=== PATIENT | male | born 1970 | race Caucasian/White ===

== ENCOUNTER 2016-11-04 19:03 | Inpatient (IN) | payer MEDICAID, OTHER ==
[~2016-11-04] VITALS: Ht 188 cm; Wt 117.9 kg
[2016-11-04 19:03] VITALS: BP_SYST 136
[~2016-11-04 19:03] MED LIST: ASPI81TA2 PO; CARV6.2554 PO; LEVO500T20 PO; LISI-600 PO; SIMV80TA2 PO; SPIR25TA4 PO
[2016-11-04 19:37] LABS: BASOPHILS # (AUTO) 0.1 K/uL (0.0-0.2); BASOPHILS % (AUTO) 1.1 % (0.0-2.0); EOSINOPHILS # (AUTO) 0.3 K/uL (0.0-0.4); EOSINOPHILS % (AUTO) 3.2 % (0.0-4.0); HEMATOCRIT 40.2 % (36-54); HEMOGLOBIN 12.8 g/dL (14.0-18.0); LYMPHOCYTES # (AUTO) 1.3 K/uL (1.0-5.5); MEAN CORPUSCULAR HEMOGLOBIN 26 pg (27-31); MEAN CORPUSCULAR HGB CONC 32 % (32-36); MEAN CORPUSCULAR VOLUME 83 fL (79.0-98.0); MONOCYTES # (AUTO) 0.7 K/uL (0.0-1.0); NEUTROPHILS # (AUTO) 6.9 K/uL (1.8-7.7); NEUTROPHILS % (AUTO) 73.7 % (40.0-70.0); PLATELET COUNT (AUTO) 193 K/uL (130-430); RED BLOOD CELL COUNT(AUTO) 4.86 MIL/uL (4.2-6.2); RED CELL DISTRIBUTION WIDTH 16.6 % (9.0-15.0); WHITE BLOOD COUNT (AUTO) 9.3 K/uL (4.8-10.8)
[2016-11-04 19:41] LABS: CREATININE 1.45 mg/dL (0.55-1.30)
[2016-11-04 19:43] LABS: PROTHROMBIN TIME 11.2 SECS (9.5-12.5)
[2016-11-04] MEDS ORDERED: ASPIRIN 81 MG TAB.CHEW PO ONE (19:45)
[2016-11-04] MEDS ORDERED: ENOXAPARIN SODIUM 100 MG/ML SYRINGE SUBCUT ONE (19:45)
[2016-11-04 19:46] LABS: ALBUMIN 3.8 g/dL (3.4-4.8); TOTAL BILIRUBIN 0.6 mg/dL (0.0-1.0); TOTAL PROTEIN, SERUM 7.8 g/dL (6.4-8.3)
[2016-11-04 21:08] LABS: BILIRUBIN,URINE NEGATIVE (NEGATIVE); CLARITY/URINE CLEAR (CLEAR); COLOR,URINE YELLOW (YELLOW); GLUCOSE,URINE NEGATIVE (NEGATIVE); KETONES,URINE NEGATIVE (NEGATIVE); LEUKOCYTE ESTERASE ,URINE NEGATIVE (NEGATIVE); NITRITE, URINE NEGATIVE (NEGATIVE); PROTEIN URINE 1+ (NEGATIVE)
[2016-11-04 21:14] LABS: BLOOD, URINE TRACE (NEGATIVE)
[2016-11-04 21:17] LABS: BARBITURATE, URINE NEGATIVE (NEG <=200); BENZODIAZEPINE, URINE NEGATIVE (NEG <=150); CANNABINOID, URINE POSITIVE (NEG <=50); COCAINE, URINE NEGATIVE (NEG <=150); METHAMPHETAMINES SCREEN,URINE NEGATIVE (NEG <=500); OPIATE, URINE POSITIVE (NEG <=100); PHENCYCLIDINE SCREEN,URINE NEGATIVE (NEG <=25); UR TRICYCLIC ANTIDEPRESSANTS NEGATIVE (NEG <=300); URINE AMPHETAMINE NEGATIVE (NEG <=500); URINE METHADONE NEGATIVE (NEG <=200); URINE OXYCODONE SCREEN NEGATIVE (NEG <=100); URINE PROPOXYPHENE SCREEN NEGATIVE (NEG <=300)
[2016-11-04 21:35] LABS: BACTERIA,URINE RARE /HPF (None Seen); WBC,URINE 0-3 /HPF (0-3)
[2016-11-04] MEDS ORDERED: DIPHENHYDRAMINE INJ 50 MG/ML VIAL IVP ONE (22:00)
[2016-11-04] MEDS ORDERED: MORPHINE 4 MG/ML INJ. SYRINGE IVP ONE (22:00)
[2016-11-04] MEDS ORDERED: FUROSEMIDE 40 MG/4 ML VIAL IVP ONE (22:00)
[2016-11-04] MEDS ORDERED: WARF1TAB2 PO (22:19)
[2016-11-04] MEDS ORDERED: HYDROcodone/ACETAMIN 10-325 MG TAB PO PRN (22:30)
[2016-11-04] MEDS ORDERED: DIPHENHYDRAMINE HCL 50 MG CAPSULE PO PRN (22:30)
[2016-11-04] MEDS ORDERED: MORPHINE 4 MG/ML INJ. SYRINGE IVP PRN (22:30)
[2016-11-04] MEDS ORDERED: ACETAMINOPHEN 325 MG TABLET PO PRN (22:30)
[2016-11-04] MEDS ORDERED: ONDANSETRON HCL 4 MG/2 ML VIAL IVP PRN (22:30)
[2016-11-04 22:50] VITALS: BP_SYST 144
[2016-11-05 00:10] VITALS: BP_SYST 144
[2016-11-05 04:07] VITALS: BP_SYST 116
[2016-11-05 07:37] VITALS: BP_SYST 124
== END 2016-11-05 08:10 | disposition left against medical advice (07) | DRG 203 ==
LOC: SED 19:03 → STU 22:30
PROVIDERS: ADMIT Internal Medicine; ATTEND Internal Medicine
DX: R07.89 Other chest pain (principal); I11.0 Hypertensive heart disease with heart failure; I42.9 Cardiomyopathy, unspecified; I50.9 Heart failure, unspecified; I48.91 Unspecified atrial fibrillation; E11.9 Type 2 diabetes mellitus without complications; F19.10 Other psychoactive substance abuse, uncomplicated; Z53.21 Procedure and treatment not carried out due to patient leaving prior to being seen by health care provider; Z88.8 Allergy status to other drugs, medicaments and biological substances; Z95.810 Presence of automatic (implantable) cardiac defibrillator
CPT/HCPCS: 36415; 71010; 80053; 80307; 81000-TC; 83605; 83880; 84484; 85025; 85610-TC; 85730-TC; 87040-TC; 87081; 93005; 96374; 96375; 99285; J1200; J1940; J2270; Q0163

== ENCOUNTER 2017-01-15 08:22 | Inpatient (IN) | payer MEDICAID, OTHER ==
[~2017-01-15] VITALS: Ht 188 cm; Wt 126.6 kg
[~2017-01-15 08:22] MED LIST changes: +WARF1TAB2 PO
--- NOTE | 2017-01-15 08:22 | NUR ---
Placed in room 1 . Placed on front desk monitor, blood pressure machine and pulse oximeter. To gown for exam. Side rails up. Report given to Veronica MCKEON.
--- NOTE | 2017-01-15 08:25 | NUR ---
ER Dr. Ingarm at bedside examining patient.
[2017-01-15] MEDS ORDERED: NITROGLYCERIN LINGUAL 400 mCg/SPRAY SL STA (08:28)
[2017-01-15 08:29] VITALS: BP_SYST 141
[2017-01-15 08:48] LABS: BASOPHILS # (AUTO) 0.4 K/uL (0.0-0.2); BASOPHILS % (AUTO) 3.7 % (0.0-2.0); EOSINOPHILS # (AUTO) 0.2 K/uL (0.0-0.4); EOSINOPHILS % (AUTO) 1.7 % (0.0-4.0); HEMATOCRIT 40.6 % (36-54); HEMOGLOBIN 12.8 g/dL (14.0-18.0); LYMPHOCYTES # (AUTO) 1.1 K/uL (1.0-5.5); MEAN CORPUSCULAR HEMOGLOBIN 26 pg (27-31); MEAN CORPUSCULAR HGB CONC 32 % (32-36); MEAN CORPUSCULAR VOLUME 82 fL (79.0-98.0); MONOCYTES # (AUTO) 0.5 K/uL (0.0-1.0); MONOCYTES % (AUTO) 4.9 % (1.7-9.3); NEUTROPHILS # (AUTO) 8.9 K/uL (1.8-7.7); NEUTROPHILS % (AUTO) 79.7 % (40.0-70.0); PLATELET COUNT (AUTO) 313 K/uL (130-430); RED BLOOD CELL COUNT(AUTO) 4.98 MIL/uL (4.2-6.2); RED CELL DISTRIBUTION WIDTH 16.8 % (9.0-15.0); WHITE BLOOD COUNT (AUTO) 11.1 K/uL (4.8-10.8)
--- NOTE | 2017-01-15 08:50 | NUR ---
# 20 gauge angiocath placed to LEFT A/C. Use of aseptic technique. Opsite placed over site. Blood return noted. Flushed with 10 cc of normal saline. No evidence of infiltration noted. Patient tolerated well.
[2017-01-15 08:53] LABS: CALCIUM 8.8 mg/dL (8.4-11.0); CREATININE 1.84 mg/dL (0.55-1.30); POTASSIUM 3.5 mmol/L (3.5-5.1)
[2017-01-15 08:58] LABS: ALBUMIN 3.1 g/dL (3.4-4.8); TOTAL BILIRUBIN 1.9 mg/dL (0.0-1.0); TOTAL PROTEIN, SERUM 6.9 g/dL (6.4-8.3)
[2017-01-15] MEDS ORDERED: MORPHINE 2 MG/ML INJ. SYRINGE IVP ONE (09:00)
[2017-01-15] MEDS ORDERED: PROMETHAZINE HCL 25 MG/ML AMP IVP ONE (09:00)
[2017-01-15] MEDS ORDERED: ASPIRIN 81 MG TAB.CHEW PO ONE (09:00)
--- NOTE | 2017-01-15 09:10 | NUR ---
MORPHINE 2 MG IVP. ASPIRIN PO GIVEN ORDERED.
[2017-01-15] MEDS ORDERED: CARV12.548 PO (09:18)
[2017-01-15] MEDS ORDERED: FURO-149 PO (09:18)
[2017-01-15] MEDS ORDERED: DOCU-144 PO (09:18)
[2017-01-15] MEDS ORDERED: SPIR25TA PO (09:18)
--- NOTE | 2017-01-15 09:29 | NUR ---
Telemetry strip printed, interpreted as SINUS TACHYCARDIA WITH BUNDLE BRANCH BLOCK at 103 bpm, and placed on the chart.
[2017-01-15] MEDS ORDERED: cloNIDine HCL 0.1 MG TABLET PO PRN (09:45)
[2017-01-15] MEDS ORDERED: FUROSEMIDE 40 MG TABLET PO ONE (09:45)
--- NOTE | 2017-01-15 10:00 | NUR ---
TRANSFERRED PT TO TELEMETRY DEPT, VIA [facility], PORTABLE CARDIAC MONITORING WITH PULSE OXIMETRY, O2 IN USE AT 2 L PER MIN VIA NASAL CANNULA, REPORT GIVEN TO MIKE SCHILLING. [facility].
--- NOTE | 2017-01-15 10:08 | NUR ---
ADMISSION NOTE Received patient from ER via andrew, received report from KATTY MCKEON. Patient admitted with diagnosis of CHEST PAIN. Patient oriented to hospital routine, call light, toileting and safety-patient verbalized understanding.
[2017-01-15 10:09] VITALS: BP_SYST 139
[2017-01-15 12:30] VITALS: BP_SYST 130
--- NOTE | 2017-01-15 12:30 | NUR ---
RN ROUNDS PATIENT RESTING IN BED WITH EYES CLOSED, NO SIGNS OF DISTRESS NOTED, BREATHING IS EVEN AND UNLABORED, CALL CRISTINA LEFT NEXT TO PATIENT'S HAND, FALL PRECAUTIONS IN PLACE, WILL CONTINUE TO MONITOR.
[2017-01-15] MEDS ORDERED: LORazepam 2 MG/ML VIAL IVP PRN (13:30)
[2017-01-15] MEDS ORDERED: ONDANSETRON HCL 4 MG/2 ML VIAL IVP PRN (13:30)
[2017-01-15] MEDS ORDERED: DEXTROSE 50% JECT 50 ML DISP.SYRIN IVP PRN (13:30)
[2017-01-15] MEDS: MORPHINE 4 MG/ML INJ. SYRINGE IVP PRN ×2 (14:00→20:06)
--- NOTE | 2017-01-15 14:03 | NUR ---
RN ROUNDS PATIENT WAS GIVEN PRN PAIN MEDICATION, WILL REASSESS EFFECTIVENESS, INSTRUCTED PATIENT TO USE CALL CRISTINA FOR ASSISTANCE ESPECIALLY TO AMBULATE, PATIENT VERBALIZED UNDERSTANDING, NO OTHER NEEDS AT THIS TIME, FALL PRECAUTIONS IN PLACE,
--- NOTE | 2017-01-15 15:00 | NUR ---
RN ROUNDS PATIENT RESTING IN BED WITH EYES CLOSED, NO SIGNS OF DISTRESS NOTED, BREATHING IS EVEN AND UNLABORED, FALL PRECAUTIONS IN PLACE, WILL CONTINUE TO MONITOR.
--- NOTE | 2017-01-15 15:22 | NUR ---
CARDIO CONSULT: DR DEUTSCH Consult was called, RE CHITRA Mireles
--- NOTE | 2017-01-15 16:06 | NUR ---
RN ROUNDS PATIENT RESTING IN BED WITH EYES CLOSED, CALL CRISTINA WITHIN REACH OF PATIENT, FALL PRECAUTIONS IN PLACE, WILL CONTINUE TO MONITOR.
[2017-01-15] MEDS: INSULIN REGULAR, HUMAN 100 UNITS/ML, 10 ML VIAL (novoLIN R) SUBCUT PRN ×2 (16:48→20:54)
--- NOTE | 2017-01-15 16:50 | NUR ---
RN ROUNDS ACCUCHECK DONE UR=[id number], PATIENT WAS GIVEN 2UNITS OF INSULIN FOR COVERAGE, NO OTHER NEEDS AT THIS TIME, WILL CONTINUE TO MONITOR, FALL PRECAUTIONS IN PLACE.
[2017-01-15 17:28] VITALS: BP_SYST 129
--- NOTE | 2017-01-15 18:28 | NUR ---
CLOSING NOTE PATIENT CURRENTLY SITTING UP ON SIDE OF BED EATING DINNER, PATIENT HAS NO COMPLAINTS OF PAIN OR DISCOMFORT AT THIS TIME, ALL NEEDS MET, WILL ENDORSE PATIENT TO ROLL COATING MACHINE OPERATOR NURSE, CALL CRISTINA LEFT WITHIN REACH OF PATIENT, SIDE RAILS UP, BED IN LOWEST POSITION, FALL PRECAUTIONS IN PLACE.
[2017-01-15 19:57] VITALS: BP_SYST 132
--- NOTE | 2017-01-15 19:57 | NUR ---
PM ASSESSMENT PT. A/OX4, VITAL SIGNS STABLE, NO DISTRESS NOTED, PT. C/O SEVERE UPPER ABDOMINAL PAIN RATED 10/10, UPDATED WITH PLAN OF CARE, ENCOURAGED PT. TO USE CALL LIGHT FOR ASSISTANCE, CALL LIGHT WITHIN REACH.
--- NOTE | 2017-01-15 21:30 | NUR ---
ACCUCHECK BLOOD SWOML=654, 4 UNITS REGULAR INSULIN GIVEN.
--- NOTE | 2017-01-15 23:30 | NUR ---
RN ROUNDS PT. RESTING QUIETLY, VITAL SIGNS STABLE, NO DISTRESS NOTED, CALL LIGHT WITHIN REACH.
[2017-01-16] VITALS: BP_SYST 122
[2017-01-16] MEDS: MORPHINE 4 MG/ML INJ. SYRINGE IVP PRN ×5 (01:08→21:18)
--- NOTE | 2017-01-16 01:30 | NUR ---
RN ROUNDS PT. RESTING QUIETLY, VITAL SIGNS STABLE, NO DISTRESS NOTED, NO S/S OF PAIN OR DISCOMFORT. REPOSITIONED WITH PILLOW SUPPORT. BED IN LOWEST POSITION.
--- NOTE | 2017-01-16 03:30 | NUR ---
RN ROUNDS PT. SLEEPING, VITAL SIGNS STABLE, NO DISTRESS NOTED, NO S/S OF PAIN OR DISCOMFORT. REPOSITIONED WITH PILLOW SUPPORT. BED IN LOWEST POSITION.
[2017-01-16 04:00] VITALS: BP_SYST 132
--- NOTE | 2017-01-16 05:31 | NUR ---
PAIN PT. C/O SEVERE ABDOMINAL PAIN RATED "8/10", MORPHINE 4 MG IVP GIVEN ORDERED. VITAL SIGNS STABLE, NO DISTRESS NOTED.
--- NOTE | 2017-01-16 06:31 | NUR ---
CLOSING NOTES PT. RESTING QUIETLY, VITAL SIGN STABLE, NO DISTRESS NOTED, DENIES PAIN, IV ACCESS FLUSHED WELL, CALL LIGHT WITHIN REACH, BED IN LOWEST POSITION.
[2017-01-16 07:09] LABS: BASOPHILS # (AUTO) 0.1 K/uL (0.0-0.2); EOSINOPHILS # (AUTO) 0.4 K/uL (0.0-0.4); HEMATOCRIT 37.3 % (36-54); LYMPHOCYTES # (AUTO) 1.5 K/uL (1.0-5.5); LYMPHOCYTES % (AUTO) 15.3 % (20.5-51.5); MEAN CORPUSCULAR HEMOGLOBIN 26 pg (27-31); MEAN CORPUSCULAR HGB CONC 32 % (32-36); MEAN CORPUSCULAR VOLUME 81 fL (79.0-98.0); MONOCYTES # (AUTO) 0.7 K/uL (0.0-1.0); MONOCYTES % (AUTO) 7.3 % (1.7-9.3); NEUTROPHILS # (AUTO) 6.9 K/uL (1.8-7.7); NEUTROPHILS % (AUTO) 72.4 % (40.0-70.0); PLATELET COUNT (AUTO) 263 K/uL (130-430); RED CELL DISTRIBUTION WIDTH 16.7 % (9.0-15.0); WHITE BLOOD COUNT (AUTO) 9.6 K/uL (4.8-10.8)
--- NOTE | 2017-01-16 08:00 | NUR ---
opening notes, received pt in bed, aao x4, denies pain, no sob, no distress. iv lock , patent and intact. call light in easy reach, bed in low position. will cont to monitor.
[2017-01-16 08:07] VITALS: BP_SYST 123
[2017-01-16 08:07] LABS: POTASSIUM 3.5 mmol/L (3.5-5.1)
[2017-01-16 08:08] LABS: ALBUMIN 2.8 g/dL (3.4-4.8); CALCIUM 8.2 mg/dL (8.4-11.0); CREATININE 1.52 mg/dL (0.55-1.30); TOTAL BILIRUBIN 1.1 mg/dL (0.0-1.0); TOTAL PROTEIN, SERUM 6.5 g/dL (6.4-8.3)
[2017-01-16 08:09] LABS: FREE T4 (FREE THYROXINE) 1.1 ng/dL (0.6-1.6)
[2017-01-16] MEDS: CARVEDILOL 12.5 MG TABLET (COREG) PO SCH ×2 (09:19→21:17)
[2017-01-16] MEDS: LISINOPRIL 10 MG TABLET (PRINIVIL) PO SCH (09:20)
[2017-01-16] MEDS: FUROSEMIDE 40 MG/4 ML VIAL IVP SCH ×2 (09:21→21:16)
[2017-01-16] MEDS: SPIRONOLACTONE 25 MG TABLET (ALDACTONE) PO SCH ×2 (09:22→21:16)
[2017-01-16] MEDS: DIPHENHYDRAMINE INJ 50 MG/ML VIAL IVP PRN ×2 (09:59→23:24)
--- NOTE | 2017-01-16 10:00 | NUR ---
rounding notes pt in bed, resting comfortably no distress. no c/o pain. call light in easy reach, bed in low position. will cont to monitor.
--- NOTE | 2017-01-16 12:00 | NUR ---
rounding notes pt in bed, resting in bed, waiting for lunch. no c/o pain. call light in easy reach, bed in low position. will cont to monitor.
--- NOTE | 2017-01-16 16:00 | NUR ---
rounding notes pt in bed, aao, no sob, no distress. requested for cracker and water, all request provided. no c/o pain. call light in easy reach, bed in low position. will cont to monitor.
[2017-01-16] MEDS: INSULIN REGULAR, HUMAN 100 UNITS/ML, 10 ML VIAL (novoLIN R) SUBCUT PRN (17:56)
--- NOTE | 2017-01-16 18:19 | NUR ---
CLOSING NOTES, PT IN BED, DENIES PAIN, NO SOB, NO DISTRESS. PT REMAINED AA0X4, PT ON DIURETICS, URINATING WELL. KEPT SAFE. ALL REQUEST AND NEEDS MET AND PROVIDED. BLOOD SUGAR THIS PM WAS 181 AND 2 UNITS COVERAGE WAS GIVEN ORDERED. CALL LIGHT IN EASY REACH AND BED IN LOW POSITION AT ALL TIMES. WILL ENDORSE TO NIGHT RN.
--- NOTE | 2017-01-16 18:57 | NUR ---
PT REFUSED SCD FOR DVT PROPHYLAXIS. OFFERED PT SCD BUT PT REFUSED. EXPLAINED TO PT THE USE AND IMPORTANCE OF SCD WHICH IS TO PREVENT BLOOD CLOT WHILE PT IS ON BEDREST. PT STATED THAT HE KNOWS WHAT IT IS.
[2017-01-16 20:00] VITALS: BP_SYST 127
--- NOTE | 2017-01-16 20:00 | NUR ---
Initial PM Assessment Pt was received lying in bed fully awake, alert and oriented X4. Speech is clear and pt is able to make his needs known. No c/o pain or discomfort at this time. Fall and safety precautions are in place. Pt declined SCD's. Saline lock in LAC is patent and without any signs of infiltration. Skin is warm and dry to touch. No signs or symptoms of hypoglycemia or hyperglycemia noted. Will continue to monitor pt.
--- NOTE | 2017-01-16 20:30 | NUR ---
Transfer to Med/Surg Pt was transferred from Telemetry to Med/Surg per MD's order. director global was removed and given to Client Director.
--- NOTE | 2017-01-16 21:14 | NUR ---
Blood Sugar Accucheck 104 and no Insulin coverage needed. Skin remains warm and dry to touch. Pt was given HS snacks and he ate !00%.
--- NOTE | 2017-01-16 21:18 | NUR ---
Pain Medication Morphine 4mg was given IV per pt's request for c/o mid chest pain with relief. court monitor is showing SR. Addendum: 01/17/17 at 0338 by Natalia Vela RN Correction Pt is off court monitor and is a Med/Surg pt.
--- NOTE | 2017-01-16 23:24 | NUR ---
Itching Medication Benadryl 25mg was given IV per pt's request for c/o generalized itching with relief. Pt was multiple dry scabs on his skin.
[2017-01-16 23:32] VITALS: BP_SYST 123
--- NOTE | 2017-01-17 02:00 | NUR ---
Rounds Pt is sleeping without any distress noted. Fall and safety precautions are in place.
[2017-01-17] MEDS: MORPHINE 4 MG/ML INJ. SYRINGE IVP PRN ×4 (03:06→20:40)
--- NOTE | 2017-01-17 03:06 | NUR ---
Pain Medication Morphine 4mg was given IV per pt's request for c/o mid chest pain with relief.
--- NOTE | 2017-01-17 04:00 | NUR ---
Rounds Pt is sleeping without any distress noted. Fall and safety precautions are in place.
[2017-01-17 04:52] VITALS: BP_SYST 94
--- NOTE | 2017-01-17 06:43 | NUR ---
Closing Note Pt is awake and resting comfortably in bed. All pt's needs were attended to. No fall or injury noted this shift. Accucheck 99 this AM and no Insulin coverage needed. Skin remains warm and dry to touch. Will endorse to day shift nurse.
[2017-01-17] MEDS: DIPHENHYDRAMINE INJ 50 MG/ML VIAL IVP PRN ×3 (06:52→22:12)
--- NOTE | 2017-01-17 07:30 | NUR ---
Initial notes: patient on bed sleeping. Stable. I.V. access on saline lock. Call light within reach.
[2017-01-17 07:35] LABS: ALBUMIN 2.9 g/dL (3.4-4.8); CALCIUM 8.8 mg/dL (8.4-11.0); CREATININE 1.4 mg/dL (0.55-1.30); TOTAL BILIRUBIN 0.8 mg/dL (0.0-1.0); TOTAL PROTEIN, SERUM 6.7 g/dL (6.4-8.3)
[2017-01-17] MEDS: FUROSEMIDE 40 MG/4 ML VIAL IVP SCH ×3 (08:12→20:50)
[2017-01-17] MEDS: LISINOPRIL 10 MG TABLET (PRINIVIL) PO SCH (08:13)
[2017-01-17] MEDS: CARVEDILOL 12.5 MG TABLET (COREG) PO SCH ×2 (08:13→20:43)
[2017-01-17] MEDS: SPIRONOLACTONE 25 MG TABLET (ALDACTONE) PO SCH ×2 (08:14→20:42)
--- NOTE | 2017-01-17 08:17 | NUR ---
rounds: patient awake and had just breakfast. Requesting for more food. Discussed plan of care. Complained of pain 9/10 chest going down to both arm.
--- NOTE | 2017-01-17 08:26 | NUR ---
Robert rounds: Dr. Napoles seen the patient. He said pt may go later today. He gives his clearance.
[2017-01-17 09:08] VITALS: BP_SYST 121
--- NOTE | 2017-01-17 10:15 | NUR ---
rounds: patient sleeping. no distress noted.
--- NOTE | 2017-01-17 11:30 | NUR ---
rounds: patient resting. no distress noted.
[2017-01-17 11:51] VITALS: BP_SYST 119
--- NOTE | 2017-01-17 13:46 | NUR ---
rounds: patient states "He'll have shower later". Went back to sleep.
--- NOTE | 2017-01-17 16:01 | NUR ---
pain: patient verbalized of chest pain 9/. Patient appears relax, no facial grimace. requesting pain meds. Due Morphine pain meds I,.V.P. given.
[2017-01-17] MEDS: INSULIN REGULAR, HUMAN 100 UNITS/ML, 10 ML VIAL (novoLIN R) SUBCUT PRN ×2 (17:00→20:49)
--- NOTE | 2017-01-17 18:28 | NUR ---
Closing notes: Patient on bed resting. Stable. Needs attended. Call light within reach. Report will be given to incoming patient services manager nurse.
--- NOTE | 2017-01-17 19:00 | NUR ---
PM Notes Received patient on bed awake, alert and verbally responsive watching TV noted. No sign of respiratory distress and no complain of pain noted. IV site saline lock on left antecubital gauge 20 is intact with no s/sx. of infiltration noted. No s/sx. of hypo/hyperglycemia noted. Continue to monitor. All needs attended by staff. Call light within reach.
--- NOTE | 2017-01-17 22:20 | NUR ---
PM Notes Patient on bed sleeping noted. No sign of respiratory distress noted. Continue to monitor. Call light within reach.
[2017-01-18] VITALS (7 sets, daily range): BP systolic 92–123
--- NOTE | 2017-01-18 00:26 | NUR ---
Notes Patient on bed sleeping noted. No sign of respiratory distress and no complain of pain noted. Continue to monitor. Call light within reach.
[2017-01-18] MEDS: MORPHINE 4 MG/ML INJ. SYRINGE IVP PRN ×4 (02:29→20:28)
--- NOTE | 2017-01-18 02:32 | NUR ---
Notes Patient woke up and asked for pain medication. Given due pain medication as ordered. Continue to monitor. Call light within reach.
--- NOTE | 2017-01-18 04:08 | NUR ---
Notes Patient on bed sleeping noted with no sign of respiratory distress and no complain of pain noted. Continue to monitor. Call light within reach.
[2017-01-18] MEDS: DIPHENHYDRAMINE INJ 50 MG/ML VIAL IVP PRN ×3 (04:23→17:22)
--- NOTE | 2017-01-18 06:33 | NUR ---
Closing Notes Patient on bed, awake, alert and verbally responsive. No sign of respiratory distress and no complain of pain noted and checked BS WNL. All needs attended and met by staff. Call light within reach.
--- NOTE | 2017-01-18 06:41 | NUR ---
Notes Went to the room and encouraged patient to take a shower. Patient stated "later I will take a shower". Brought in the room new gown, wash cloth and deodorant. Will endorsed morning shift. Call light within reach.
--- NOTE | 2017-01-18 07:20 | NUR ---
Initial notes: patient on bed sleeping. Stable. Oxygen @2l. via NC. Safety measures in placed. Call light within reach.
[2017-01-18 07:41] LABS: BASOPHILS # (AUTO) 0.1 K/uL (0.0-0.2); EOSINOPHILS # (AUTO) 0.4 K/uL (0.0-0.4); LYMPHOCYTES # (AUTO) 1.5 K/uL (1.0-5.5); MONOCYTES # (AUTO) 0.7 K/uL (0.0-1.0); WHITE BLOOD COUNT (AUTO) 8.7 K/uL (4.8-10.8)
[2017-01-18 07:58] LABS: CALCIUM 9.4 mg/dL (8.4-11.0); CREATININE 1.62 mg/dL (0.55-1.30); POTASSIUM 4.4 mmol/L (3.5-5.1)
[2017-01-18 08:02] LABS: BASOPHILS % (AUTO) 1.3 % (0.0-2.0); EOSINOPHILS % (AUTO) 4.1 % (0.0-4.0); HEMATOCRIT 41.8 % (36-54); HEMOGLOBIN 12.9 g/dL (14.0-18.0); MEAN CORPUSCULAR HEMOGLOBIN 25 pg (27-31); MEAN CORPUSCULAR HGB CONC 31 % (32-36); MEAN CORPUSCULAR VOLUME 82 fL (79.0-98.0); MONOCYTES % (AUTO) 7.9 % (1.7-9.3); NEUTROPHILS % (AUTO) 69.7 % (40.0-70.0); PLATELET COUNT (AUTO) 317 K/uL (130-430); RED BLOOD CELL COUNT(AUTO) 5.12 MIL/uL (4.2-6.2); RED CELL DISTRIBUTION WIDTH 17.3 % (9.0-15.0)
[2017-01-18] MEDS: FUROSEMIDE 40 MG/4 ML VIAL IVP SCH (09:10)
[2017-01-18] MEDS: CARVEDILOL 12.5 MG TABLET (COREG) PO SCH ×2 (09:11→20:28)
[2017-01-18] MEDS: SPIRONOLACTONE 25 MG TABLET (ALDACTONE) PO SCH ×2 (09:11→20:27)
[2017-01-18] MEDS: LISINOPRIL 10 MG TABLET (PRINIVIL) PO SCH (09:12)
--- NOTE | 2017-01-18 09:35 | NUR ---
rounds: patient had a shower and provided a gown. cleaned room and changed beddings.
--- NOTE | 2017-01-18 10:17 | NUR ---
IV RE-INSERTION: Complaining of pain to IV site. Restarted on R hand g22. Successful after attempts. Will observe for any signs of infiltration.
--- NOTE | 2017-01-18 11:06 | NUR ---
Social Service Note: Pt referred to hospice social worker by physician due to pt being homeless. PIPELINE SYSTEMS OPERATOR met with pt at bedside; pt states that he has been staying in his truck for about a year. Pt states that he does not go to the [facility] because "its always full". Pt states that he is working on his social security/disability for some income. Pt states that he mainly [employer]. PIPELINE SYSTEMS OPERATOR provided pt with homeless assistance resources, local [facility], and local food brar. PIPELINE SYSTEMS OPERATOR has left homeless wavier in pt's chart; pt will return to his truck upon discharge. PIPELINE SYSTEMS OPERATOR will remain available for support and will follow up as needed.
--- NOTE | 2017-01-18 11:48 | NUR ---
rounds: patient sleeping. no distress noted.
--- NOTE | 2017-01-18 13:30 | NUR ---
rounds: patient on bed sleeping. no distress noted.
--- NOTE | 2017-01-18 15:42 | NUR ---
Pain meds: patient complained of chest pain. 02/11. Requesting Morphine.IVP. Due meds given. Patient appears calm. no grasping of chest. no facial grimace.
--- NOTE | 2017-01-18 15:48 | NUR ---
food: Patient keeps on asking cracker or any food. tried to educate sugar intake but will not listen and mad.
--- NOTE | 2017-01-18 17:27 | NUR ---
rounds: patient resting on bed. no distress noted. Benadryl given for itchiness.
--- NOTE | 2017-01-18 18:29 | NUR ---
Closing notes: Patient on bed sleeping. Stable. Needs attended. Call light within reach. Report will be given to automotive glass specialist.
--- NOTE | 2017-01-18 19:36 | NUR ---
opening note Report was endorsed by day nurse. Patient appears to be resting with eyes closed no sings of distress, visible chest rise and fall breathing is equal and non labored.will continue monitor.
[2017-01-18] MEDS: FUROSEMIDE 40 MG TABLET PO SCH (20:28)
--- NOTE | 2017-01-18 21:10 | NUR ---
Accu check Addendum: 01/19/17 at 0121 by Parisa Barnes RN blood sugar checked coverage not needed please see EMAR. Patient educated on safety refusing bed alarm at this time. Call light is with patient educated to use for assistance. Will continue to monitor.
--- NOTE | 2017-01-19 | NUR ---
Medication Patient is complains of itching medicated as ordered please see EMAR. Patients vital signs are stable.urinal emptied, snacks provided as requested. Educated client service consultant light for assistance. Patient is refusing bed alarm at this time. educated on safety. Call light is with patient. Will continue to monitor.
[2017-01-19] MEDS: MORPHINE 4 MG/ML INJ. SYRINGE IVP PRN ×2 (01:28→06:21)
--- NOTE | 2017-01-19 01:31 | NUR ---
Pain medication Patient is complains of pain medicated as ordered please see EMAR. Patient urinal emptied, educated family development extension specialist light for assistance, refusing bed alarm. Patient is awake and laying in bed no signs of distress, breathing is equal and non labored. call light is with patient. Will continue to monitor.
--- NOTE | 2017-01-19 02:57 | NUR ---
Non administered Ativan non administered.
--- NOTE | 2017-01-19 05:00 | NUR ---
Rn rounding Patient appears to be resting with eyes closed visible chest rise and fall. Patient breathing is equal and non labored, with no signs of distress. Patient has call light with him. Patient is refusing bed alarm, and SCD. all other safety precautions in place.
--- NOTE | 2017-01-19 06:25 | NUR ---
Closing note/medication Patient Accu check done no coverage needed. Patient requesting pain medication medicated as order please see EMAR. Patient has daisy light with him, educated on use for assistance. safety precautions in place. refusing bed alarm, and scd at this moment. Patient is stable at this time. Will endorse report to oncoming day nurse at bed side.
[2017-01-19 08:00] VITALS: BP_SYST 130
[2017-01-19] MEDS: CARVEDILOL 12.5 MG TABLET (COREG) PO SCH (09:31)
[2017-01-19] MEDS: SPIRONOLACTONE 25 MG TABLET (ALDACTONE) PO SCH (09:32)
[2017-01-19] MEDS: LISINOPRIL 10 MG TABLET (PRINIVIL) PO SCH (09:32)
[2017-01-19] MEDS: FUROSEMIDE 40 MG TABLET PO SCH (09:33)
[2017-01-19] MEDS: DIPHENHYDRAMINE INJ 50 MG/ML VIAL IVP PRN ×2 (09:33)
--- NOTE | 2017-01-19 10:01 | NUR ---
AM NOTES RECEIVED PT AAOX4 IN NO ACUTE DISTRESS. PT DENIES ANY PAIN AT THIS TIME, ONLY REQUESTING CRACKERS AND BENADRYL. DISCUSSED POC FOR THE DAY WITH PT INCLUDING DISCHARGE FOR TODAY. PT VERBALIZED HE HAS HIS CAR HERE AND WILL DRIVE HIMSELF TO A [facility]. PT ENCOURAGED TO USE CALL LIGHT FOR ASSISTANCE. PT VERBALIZED UNDERSTANDING. BED IN LOWEST POSITION WITH SIDE RAILS UP X2.
--- NOTE | 2017-01-19 11:30 | NUR ---
ROUNDS PT NOTIFIED OF DISCHARGE ORDERS FOR TODAY. PT REFUSED TO HAVE HIS VITAL SIGNS TAKEN. BLOOD SUGAR NOTED TO BE 155, PT REFUSED INSULIN. DENIES ANY PAIN AT THIS TIME
[2017-01-19] MEDS ORDERED: PRO40 PO (11:45)
[2017-01-19] MEDS ORDERED: LISI10TA5 PO (11:46)
[2017-01-19] MEDS: INSULIN REGULAR, HUMAN 100 UNITS/ML, 10 ML VIAL (novoLIN R) SUBCUT PRN (11:56)
--- NOTE | 2017-01-19 12:46 | NUR ---
D/C Patient Patient given medication reconciliation form and D/C instructions. Exit Care provided. Patient verbalized understanding. MD discussed with patient the results and treatment provided. Ambulatory with steady gait for discharge to home. Patient in stable condition, ID band removed. IV catheter removed, intact and dressing applied, no active bleeding. Rx of PROTONIX, COREG, LASIX, ALDACTONE AND LISINOPRIL given. Patient educated on pain management. All belongings sent with patient.
== END 2017-01-19 12:44 | disposition home or self-care (01) | DRG 203 ==
LOC: SED 08:22 → STU 09:32 → SMU 01-16 21:43
PROVIDERS: ADMIT Internal Medicine; ATTEND Internal Medicine
DX: R07.89 Other chest pain (principal); I42.0 Dilated cardiomyopathy; N18.4 Chronic kidney disease, stage 4 (severe); N17.9 Acute kidney failure, unspecified; I50.9 Heart failure, unspecified; I13.0 Hypertensive heart and chronic kidney disease with heart failure and stage 1 through stage 4 chronic kidney disease, or unspecified chronic kidney disease; F03.90 Unspecified dementia, unspecified severity, without behavioral disturbance, psychotic disturbance, mood disturbance, and anxiety; Q60.0 Renal agenesis, unilateral; E11.22 Type 2 diabetes mellitus with diabetic chronic kidney disease; F12.90 Cannabis use, unspecified, uncomplicated; I48.0 Paroxysmal atrial fibrillation; T43.625A Adverse effect of amphetamines, initial encounter; G89.29 Other chronic pain; M54.9 Dorsalgia, unspecified; J44.9 Chronic obstructive pulmonary disease, unspecified; K21.9 Gastro-esophageal reflux disease without esophagitis; E07.9 Disorder of thyroid, unspecified; F19.20 Other psychoactive substance dependence, uncomplicated; F10.10 Alcohol abuse, uncomplicated; Z95.810 Presence of automatic (implantable) cardiac defibrillator; Z59.0 Homelessness; Z79.899 Other long term (current) drug therapy; Z86.73 Personal history of transient ischemic attack (TIA), and cerebral infarction without residual deficits; Z88.8 Allergy status to other drugs, medicaments and biological substances; Y92.89 Other specified places as the place of occurrence of the external cause
CPT/HCPCS: 36415; 71010; 80048; 80053; 80061; 82962; 83036; 83880; 84439; 84484; 85025; 87081; 87210-TC; 93005; 93306; 96374; 96375; 99285; J1200; J1815; J1940; J2060; J2270; J2550

== ENCOUNTER 2017-03-04 10:30 | Inpatient (IN) | payer OTHER ==
[2017-01-17 15:16] VITALS: Ht 188 cm; Wt 122.5 kg
[~2017-03-04] VITALS: Ht 188 cm; Wt 122.5 kg
[2017-03-04 10:30] VITALS: BP 137/88; PULSE 98; RESP 20; TEMP 98.3; O2SAT 100
[~2017-03-04 10:30] MED LIST changes: +CARV12.548 PO; +CARV3.1246 PO; +CYCL-10 PO; +DOCU-144 PO; +EFFEXOR; +FURO-149 PO; +HYDR-1189 PO; +LISI10TA5 PO; +LISI2.5T48 PO; +NORCO5 PO; +PRO40 PO; +SPIR25TA PO; +WARF7.5T46 PO
--- NOTE | 2017-03-04 10:30 | NUR ---
BROUGHT BACK TO BED #1 AND TRIAGED. REPORT GIVEN TO MACKENZIE
[2017-03-04] MEDS ORDERED: NACL 0.9% 1,000 ML IV ONE (10:45)
[2017-03-04] MEDS ORDERED: ASPIRIN 325 MG TABLET PO ONE (10:45)
[2017-03-04] MEDS ORDERED: MORPHINE 4 MG/ML INJ. SYRINGE IVP ONE ×2 (10:45→12:15)
[2017-03-04] MEDS ORDERED: NITROGLYCERIN 0.4 MG TAB.SUBL SL ONE (10:45)
--- NOTE | 2017-03-04 10:45 | NUR ---
ER at bedside examining patient.
[2017-03-04] MEDS ORDERED: DIPHENHYDRAMINE INJ 50 MG/ML VIAL IVP ONE (11:00)
--- NOTE | 2017-03-04 11:07 | NUR ---
Pt complains of chest pain that radiates to both upper extremities and to fingers since last night. Pt states had N/V since last night and had a bowel movement on himself at 3am. No other injuries/complaints per pt or noted.
[2017-03-04 11:22] LABS: BASOPHILS # (AUTO) 0.1 K/uL (0.0-0.2); BASOPHILS % (AUTO) 0.8 % (0.0-2.0); EOSINOPHILS # (AUTO) 0.1 K/uL (0.0-0.4); HEMATOCRIT 38.6 % (36-54); HEMOGLOBIN 12.2 g/dL (14.0-18.0); LYMPHOCYTES # (AUTO) 0.9 K/uL (1.0-5.5); LYMPHOCYTES % (AUTO) 8.6 % (20.5-51.5); MEAN CORPUSCULAR HEMOGLOBIN 25 pg (27-31); MEAN CORPUSCULAR HGB CONC 32 % (32-36); MEAN CORPUSCULAR VOLUME 79 fL (79.0-98.0); MONOCYTES # (AUTO) 0.5 K/uL (0.0-1.0); MONOCYTES % (AUTO) 4.9 % (1.7-9.3); NEUTROPHILS # (AUTO) 8.6 K/uL (1.8-7.7); NEUTROPHILS % (AUTO) 84.7 % (40.0-70.0); PLATELET COUNT (AUTO) 240 K/uL (130-430); RED BLOOD CELL COUNT(AUTO) 4.89 MIL/uL (4.2-6.2); RED CELL DISTRIBUTION WIDTH 17.7 % (9.0-15.0); WHITE BLOOD COUNT (AUTO) 10.2 K/uL (4.8-10.8)
[2017-03-04 11:40] LABS: INR 1.3 (0.80-1.20); PROTHROMBIN TIME 14.7 SECS (9.5-12.5)
[2017-03-04 11:57] LABS: CALCIUM 9.2 mg/dL (8.4-11.0); CREATININE 1.63 mg/dL (0.55-1.30); POTASSIUM 3.8 mmol/L (3.5-5.1)
[2017-03-04 12:07] LABS: ALBUMIN 3.3 g/dL (3.4-4.8); TOTAL BILIRUBIN 1.5 mg/dL (0.0-1.0)
[2017-03-04] MEDS ORDERED: FUROSEMIDE 40 MG/4 ML VIAL IVP ONE (12:30)
[2017-03-04] MEDS ORDERED: ENOXAPARIN SODIUM 120 MG/0.8 ML SYRINGE SUBCUT ONE (12:30)
--- NOTE | 2017-03-04 12:38 | NUR ---
Pt was given medications, no noted adverse reaction, will continue to monitor. Pt ambulated to bathroom with no noted distress or discomfort.
--- NOTE | 2017-03-04 12:40 | NUR ---
Medication reconciliation completed with information provided by patient, only remembers taking lisinopril at home, will have someone find out the other medications. Any prior medication reconciliation on file was reviewed and corrected.
[2017-03-04] MEDS ORDERED: NITROGLYCERIN 1 INCH (GM) OINT. TP ONE (13:00)
--- NOTE | 2017-03-04 13:10 | NUR ---
Patient will be admitted to care of Dr. Welch. Admitted to Telemetry unit. Will go to room 135. Belongings list completed. Summary report printed. Report will be given at bedside.
[2017-03-04] MEDS ORDERED: NITROGLYCERIN 1 INCH (GM) OINT. ONE (13:11)
--- NOTE | 2017-03-04 13:12 | NUR ---
CARDIOLOGY CONSULT CALLED TO DR DEUTSCH, RE: CP. SPOKE TO ZEFERINO
--- NOTE | 2017-03-04 13:12 | NUR ---
ADMISSION NOTE Received patient from ER via andrew, received report from Ishaan MCKEON. Patient admitted with diagnosis of Chest pain. Patient oriented to hospital routine, call light, toileting and safety-patient verbalized understanding.
[2017-03-04 13:16] VITALS: BP 142/99; PULSE 90; RESP 16; TEMP 98.1; O2SAT 98
[2017-03-04 13:17] VITALS: BP 142/99; PULSE 90; RESP 16; TEMP 98.1; O2SAT 98
[2017-03-04 13:31] LABS: BILIRUBIN,URINE NEGATIVE (NEGATIVE); BLOOD, URINE NEGATIVE (NEGATIVE); CLARITY/URINE CLEAR (CLEAR); COLOR,URINE YELLOW (YELLOW); GLUCOSE,URINE NEGATIVE (NEGATIVE); KETONES,URINE NEGATIVE (NEGATIVE); LEUKOCYTE ESTERASE ,URINE NEGATIVE (NEGATIVE); NITRITE, URINE NEGATIVE (NEGATIVE); PROTEIN URINE 1+ (NEGATIVE); UROBILINOGEN,URINE 0.2 (0.2-1.0)
[2017-03-04 13:47] LABS: BARBITURATE, URINE NEGATIVE (NEG <=200); BENZODIAZEPINE, URINE NEGATIVE (NEG <=150); CANNABINOID, URINE NEGATIVE (NEG <=50); COCAINE, URINE NEGATIVE (NEG <=150); METHAMPHETAMINES SCREEN,URINE NEGATIVE (NEG <=500); OPIATE, URINE POSITIVE (NEG <=100); PHENCYCLIDINE SCREEN,URINE NEGATIVE (NEG <=25); UR TRICYCLIC ANTIDEPRESSANTS NEGATIVE (NEG <=300); URINE AMPHETAMINE NEGATIVE (NEG <=500); URINE METHADONE NEGATIVE (NEG <=200); URINE OXYCODONE SCREEN NEGATIVE (NEG <=100); URINE PROPOXYPHENE SCREEN NEGATIVE (NEG <=300)
[2017-03-04 13:50] LABS: BACTERIA,URINE None Seen /HPF (None Seen); COARSE GRANULAR CASTS,URINE 0-3 /LPF (None Seen); MUCUS,URINE None Seen /LPF (None Seen); RBC,URINE NONE SEEN /HPF (0-3); WBC,URINE NONE SEEN /HPF (0-3)
[2017-03-04 15:33] VITALS: BP 138/85; PULSE 88; RESP 18; TEMP 98; O2SAT 98
--- NOTE | 2017-03-04 15:40 | NUR ---
WET MOUNT COMPLETED. PATIENT TOLERATED WITHOUT DISTRESS
--- NOTE | 2017-03-04 18:02 | NUR ---
PATIENT IS EATING DINNER WITHOUT DISTRESS. ALL NEEDS MET AT THIS TIME. WILL DELEGATE TO NEXT SHIFT.
[2017-03-04 19:30] VITALS: BP 131/82; PULSE 82; RESP 18; TEMP 98.1; O2SAT 98
--- NOTE | 2017-03-04 19:30 | NUR ---
notes received the pt from the day nurse,pt a/a/ox4.no c/o chest pain or sob.iv intact to rt ac,no redness or swelling notedmonitor in place and shows SR.pace maker in place to lt chest call light within reach,safety measures in progress.will continue to monitor..
--- NOTE | 2017-03-04 21:30 | NUR ---
notes pt watching tv with no complaints.continue to monitor.
[2017-03-04] MEDS: SPIRONOLACTONE 25 MG TABLET (ALDACTONE) PO SCH (21:51)
[2017-03-04] MEDS: FUROSEMIDE 40 MG TABLET PO SCH (21:52)
[2017-03-04] MEDS: CARVEDILOL 12.5 MG TABLET (COREG) PO SCH (21:52)
--- NOTE | 2017-03-04 23:38 | NUR ---
notes pt was awaken for vs,became mad ,wants to sleep.
[2017-03-05] VITALS (8 sets, daily range): BP systolic 100–132; BP diastolic 57–88; PULSE 69–100; RESP 16–18; TEMP 97.2–98.2; O2SAT 94–97
--- NOTE | 2017-03-05 01:07 | NUR ---
notes pt awake and wants food.crackers sandwich and pudding given.
--- NOTE | 2017-03-05 03:42 | NUR ---
notes pt sleeping,call light within reach.continue to monitor.
--- NOTE | 2017-03-05 05:32 | NUR ---
notes dairy laboratory technician is at the bedside to draw blood.
[2017-03-05 06:03] LABS: BASOPHILS # (AUTO) 0.1 K/uL (0.0-0.2); EOSINOPHILS # (AUTO) 0.3 K/uL (0.0-0.4); EOSINOPHILS % (AUTO) 3.8 % (0.0-4.0); HEMATOCRIT 37.6 % (36-54); HEMOGLOBIN 11.6 g/dL (14.0-18.0); LYMPHOCYTES # (AUTO) 1.5 K/uL (1.0-5.5); LYMPHOCYTES % (AUTO) 16.5 % (20.5-51.5); MEAN CORPUSCULAR HEMOGLOBIN 25 pg (27-31); MEAN CORPUSCULAR HGB CONC 31 % (32-36); MEAN CORPUSCULAR VOLUME 80 fL (79.0-98.0); MONOCYTES # (AUTO) 0.5 K/uL (0.0-1.0); MONOCYTES % (AUTO) 5.7 % (1.7-9.3); NEUTROPHILS # (AUTO) 6.5 K/uL (1.8-7.7); PLATELET COUNT (AUTO) 205 K/uL (130-430); RED BLOOD CELL COUNT(AUTO) 4.73 MIL/uL (4.2-6.2); RED CELL DISTRIBUTION WIDTH 18.5 % (9.0-15.0); WHITE BLOOD COUNT (AUTO) 8.9 K/uL (4.8-10.8)
--- NOTE | 2017-03-05 06:16 | NUR ---
closing notes. pt resting with eyes closed.will endorse the care of the pt to the day nurse.
[2017-03-05 06:55] LABS: CALCIUM 8.6 mg/dL (8.4-11.0); CREATININE 1.75 mg/dL (0.55-1.30); POTASSIUM 3.8 mmol/L (3.5-5.1)
[2017-03-05 07:11] LABS: ALBUMIN 3.3 g/dL (3.4-4.8); TOTAL BILIRUBIN 1.3 mg/dL (0.0-1.0)
--- NOTE | 2017-03-05 07:19 | NUR ---
Initial note: Patient is sleeping, arousal, no sign of distress. T=97.2, IN=71, RR=16, AL=621/76, Sat O2=97% with room air.
[2017-03-05] MEDS: DOCUSATE SODIUM 100 MG CAPSULE PO SCH (08:09)
[2017-03-05] MEDS: PANTOPRAZOLE SODIUM 40 MG TAB PO SCH (08:09)
[2017-03-05] MEDS: LISINOPRIL 10 MG TABLET (PRINIVIL) PO SCH (08:10)
[2017-03-05] MEDS: CARVEDILOL 12.5 MG TABLET (COREG) PO SCH ×2 (08:10→21:00)
[2017-03-05] MEDS: FUROSEMIDE 40 MG TABLET PO SCH ×2 (08:11→21:01)
[2017-03-05] MEDS: SPIRONOLACTONE 25 MG TABLET (ALDACTONE) PO SCH ×2 (08:11→21:01)
[2017-03-05] MEDS ORDERED: DIPHENHYDRAMINE HCL 25 MG CAPSULE PO PRN (09:15)
--- NOTE | 2017-03-05 09:32 | NUR ---
Cardio round: Dr. Napoles makes round and has new orders, including pain medication.
--- NOTE | 2017-03-05 10:00 | NUR ---
Round: Patient is sleeping , no sign of distress, RR=16, WA=72.
[2017-03-05] MEDS ORDERED: MORPHINE 2 MG/ML INJ. SYRINGE ONE (11:23)
--- NOTE | 2017-03-05 12:45 | NUR ---
Sleeping: Bring Benadryl to the patient in the room as he requested. But found he is sleeping after finishing lunch tray 100%. No sing of distress.
--- NOTE | 2017-03-05 14:09 | NUR ---
@1330 extra Food: Patient asks for more food after finishing 100 % of the tray. He asks for salted crackers, but he is on cardiac diet. Give him gram crackers instead.
--- NOTE | 2017-03-05 15:41 | NUR ---
RN round: Patient is awake, alert, watching TV on the bed, comfortable, but states still hungry. Call the kitchen if he can get some snack before the patient.
[2017-03-05] MEDS: MORPHINE 2 MG/ML INJ. SYRINGE IVP PRN ×2 (17:53→23:10)
--- NOTE | 2017-03-05 17:58 | NUR ---
round: makes round and has ordered to change to Med-Surg, and DC home tomorrow morning.
--- NOTE | 2017-03-05 18:57 | NUR ---
Closing note: Patient is stable, no sign of distress, resting well. Request a lot of extra food.
--- NOTE | 2017-03-05 19:26 | NUR ---
notes received the pt from the day nurse,pt a/a/ox4.asking for crackers.no c/o pain or discomfort.iv intact to rt ac,no redness or swelling noted.dry scabs noted to arms.pace maker to lt upper chest.call light within reach,safety measures in progress.will continue to monitor.
--- NOTE | 2017-03-05 21:30 | NUR ---
NOTES PT SLEEPING ,CALL LIGHT WITHIN REACH.CONTINUE TO MONITOR.
--- NOTE | 2017-03-05 23:31 | NUR ---
NOTES PT AWAKE AND C/O PAIN,RN WAS NOTIFIED.
--- NOTE | 2017-03-06 01:30 | NUR ---
NOTES PT SLEEPING.
--- NOTE | 2017-03-06 03:23 | NUR ---
NOTES PT AWAKE AND ASKING FOR MORE CRACKERS.CONTINUE TO MONITOR.
[2017-03-06 03:51] VITALS: BP 133/67; PULSE 66; RESP 18; TEMP 98; O2SAT 94
[2017-03-06] MEDS: MORPHINE 2 MG/ML INJ. SYRINGE IVP PRN ×2 (04:01→08:00)
--- NOTE | 2017-03-06 05:23 | NUR ---
NOTES PT RESTING WITH EYES CLOSED,CONTINUE TO MONITOR.
--- NOTE | 2017-03-06 05:39 | NUR ---
REFUSAL pt was offered to get clean and pt answered scratching his head and said "no". CASEY Miller is aware.
--- NOTE | 2017-03-06 06:01 | NUR ---
CLOSING NOTES. PT WATCHING TV WITH NO COMPLAINTS,WILL ENDORSE THE PT TO THE DAY NURSE
--- NOTE | 2017-03-06 07:30 | NUR ---
AM ROUNDS: No s/s of distress noted. Will continue to monitor.
[2017-03-06 07:49] VITALS: BP 101/68; PULSE 80; RESP 20; TEMP 96.8; O2SAT 95
[2017-03-06 07:55] VITALS: BP 101/68; PULSE 80; RESP 20; TEMP 96.9; O2SAT 95
[2017-03-06] MEDS: DOCUSATE SODIUM 100 MG CAPSULE PO SCH (07:56)
[2017-03-06] MEDS: PANTOPRAZOLE SODIUM 40 MG TAB PO SCH (07:57)
[2017-03-06] MEDS: FUROSEMIDE 40 MG TABLET PO SCH (07:57)
[2017-03-06] MEDS: SPIRONOLACTONE 25 MG TABLET (ALDACTONE) PO SCH (07:57)
--- NOTE | 2017-03-06 08:00 | NUR ---
SALTINES: Patient wants more.
[2017-03-06] MEDS: CARVEDILOL 12.5 MG TABLET (COREG) PO SCH (08:06)
[2017-03-06] MEDS: LISINOPRIL 10 MG TABLET (PRINIVIL) PO SCH (08:07)
--- NOTE | 2017-03-06 09:14 | NUR ---
MORE SALTINES: Patient wants more.
--- NOTE | 2017-03-06 10:04 | NUR ---
PATIENT RESTING: Patient resting quietly. No acute distress noted. Will continue to monitor.
== END 2017-03-06 10:40 | disposition home or self-care (01) | DRG 203 ==
LOC: SED 10:30 → STU 12:50 → SMU 03-05 17:57
PROVIDERS: ADMIT Internal Medicine; ATTEND Internal Medicine
DX: R07.89 Other chest pain (principal); N17.0 Acute kidney failure with tubular necrosis; E11.22 Type 2 diabetes mellitus with diabetic chronic kidney disease; I42.0 Dilated cardiomyopathy; N18.4 Chronic kidney disease, stage 4 (severe); I50.9 Heart failure, unspecified; G43.909 Migraine, unspecified, not intractable, without status migrainosus; I44.7 Left bundle-branch block, unspecified; F15.10 Other stimulant abuse, uncomplicated; G89.29 Other chronic pain; Z59.0 Homelessness; Z95.810 Presence of automatic (implantable) cardiac defibrillator; Z86.73 Personal history of transient ischemic attack (TIA), and cerebral infarction without residual deficits; Z88.8 Allergy status to other drugs, medicaments and biological substances; Z80.9 Family history of malignant neoplasm, unspecified; Z71.41 Alcohol abuse counseling and surveillance of alcoholic; Z87.891 Personal history of nicotine dependence; Z86.14 Personal history of Methicillin resistant Staphylococcus aureus infection; Z79.899 Other long term (current) drug therapy
CPT/HCPCS: 36415; 71010; 80053; 80307; 81000-TC; 82550-TC; 83605; 83690-TC; 83735-TC; 83880; 84484; 85025; 85379; 85610-TC; 87040-TC; 87081; 87210-TC; 93005; 96372; 96374; 96375; 96376; 99285; J1200; J1650; J1940; J2270; J7030; Q0163

== ENCOUNTER 2018-08-14 19:54 | Inpatient (IN) | payer OTHER ==
[~2018-08-14] VITALS: Ht 188 cm; Wt 127.9 kg
[2018-08-14 19:54] VITALS: BP_SYST 153
[2018-08-14] MEDS ORDERED: NACL 0.9% 1,000 ML IV ONE (20:07)
[2018-08-14] MEDS ORDERED: IPRATROPIUM/ALBUTEROL SULFATE 3 ML AMPUL.NEB (DUONEB) INH ONE (20:15)
[2018-08-14] MEDS ORDERED: ASPIRIN 81 MG TAB.CHEW PO ONE (20:15)
[2018-08-14 20:41] LABS: HEMATOCRIT 44.8 % (36-54); HEMOGLOBIN 14.6 g/dL (14.0-18.0); MEAN CORPUSCULAR VOLUME 87 fL (79.0-98.0); RED BLOOD CELL COUNT(AUTO) 5.17 MIL/uL (4.2-6.2); WHITE BLOOD COUNT (AUTO) 6.8 K/uL (4.8-10.8)
[2018-08-14 20:42] LABS: BASOPHILS # (AUTO) 0.1 K/uL (0.0-0.2); BASOPHILS % (AUTO) 1.8 % (0.0-2.0); EOSINOPHILS # (AUTO) 0.4 K/uL (0.0-0.4); EOSINOPHILS % (AUTO) 5.7 % (0.0-4.0); LYMPHOCYTES # (AUTO) 1.2 K/uL (1.0-5.5); LYMPHOCYTES % (AUTO) 18.1 % (20.5-51.5); MEAN CORPUSCULAR HEMOGLOBIN 28 pg (27-31); MEAN CORPUSCULAR HGB CONC 33 % (32-36); MONOCYTES % (AUTO) 14.6 % (1.7-9.3); NEUTROPHILS # (AUTO) 4.1 K/uL (1.8-7.7); NEUTROPHILS % (AUTO) 59.8 % (40.0-70.0); PLATELET COUNT (AUTO) 208 K/uL (130-430); RED CELL DISTRIBUTION WIDTH 14.3 % (9.0-15.0)
[2018-08-14] MEDS ORDERED: FUROSEMIDE 40 MG/4 ML VIAL IVP ONE (20:45)
[2018-08-14] MEDS ORDERED: NITROGLYCERIN 0.4 MG TAB.SUBL SL ONE (20:45)
[2018-08-14] MEDS ORDERED: MORPHINE 4 MG/ML INJ. SYRINGE IVP ONE (20:45)
[2018-08-14 20:55] LABS: PROTHROMBIN TIME 10.2 SECS (9.5-12.5)
[2018-08-14 21:14] LABS: ALBUMIN 4.3 g/dL (3.4-4.8); CALCIUM 8.7 mg/dL (8.4-11.0); CREATININE 1.85 mg/dL (0.55-1.30); POTASSIUM 4.5 mmol/L (3.5-5.1); TOTAL BILIRUBIN 0.4 mg/dL (0.0-1.0)
[2018-08-14] MEDS ORDERED: ENOXAPARIN SODIUM 120 MG/0.8 ML SYRINGE SUBCUT ONE (21:30)
[2018-08-14] MEDS ORDERED: DIPHENHYDRAMINE INJ 50 MG/ML VIAL IVP ONE (21:30)
[2018-08-14] MEDS ORDERED: MAGNESIUM SULFATE 50 ML IV PRN (23:00)
[2018-08-14] MEDS ORDERED: ONDANSETRON HCL 4 MG/2 ML VIAL IVP PRN (23:00)
[2018-08-14] MEDS ORDERED: MORPHINE 4 MG/ML INJ. SYRINGE IVP PRN (23:00)
[2018-08-14] MEDS: NACL 0.9% 1,000 ML IV SCH (23:00)
[2018-08-14] MEDS ORDERED: POTASSIUM CHLORIDE 20 MEQ TAB.PRT.SR PO PRN (23:00)
[2018-08-14] MEDS ORDERED: LORazepam 2 MG/ML VIAL IVP PRN (23:00)
[2018-08-14] MEDS ORDERED: DOCUSATE SODIUM 100 MG CAPSULE PO PRN (23:00)
[2018-08-14] MEDS ORDERED: MUPIROCIN 2% TOPICAL OINTMENT 22 GM NS PRN (23:00)
[2018-08-14] MEDS ORDERED: ZOLPIDEM TARTRATE 5 MG TABLET PO PRN (23:00)
[2018-08-14] MEDS ORDERED: HEPARIN SODIUM,PORCINE 5000 UNITS/ML VIAL SUBCUT SCH (23:00)
[2018-08-14] MEDS ORDERED: ACETAMINOPHEN 325 MG TABLET PO PRN (23:00)
[2018-08-14] MEDS ORDERED: METOPROLOL TARTRATE 25 MG TABLET PO SCH (23:00)
[2018-08-14 23:06] VITALS: BP_SYST 150
[2018-08-15] MEDS: NACL 0.9% 1,000 ML IV SCH ×2 (00:18→18:32)
[2018-08-15] MEDS: MORPHINE 4 MG/ML INJ. SYRINGE IVP PRN ×5 (02:00→20:12)
[2018-08-15 07:22] LABS: HEMATOCRIT 40.7 % (36-54); HEMOGLOBIN 13.6 g/dL (14.0-18.0); MEAN CORPUSCULAR VOLUME 86 fL (79.0-98.0); RED BLOOD CELL COUNT(AUTO) 4.75 MIL/uL (4.2-6.2); WHITE BLOOD COUNT (AUTO) 6.2 K/uL (4.8-10.8)
[2018-08-15 07:23] LABS: BASOPHILS # (AUTO) 0.1 K/uL (0.0-0.2); BASOPHILS % (AUTO) 1.4 % (0.0-2.0); EOSINOPHILS # (AUTO) 0.4 K/uL (0.0-0.4); EOSINOPHILS % (AUTO) 6.5 % (0.0-4.0); LYMPHOCYTES # (AUTO) 1.1 K/uL (1.0-5.5); LYMPHOCYTES % (AUTO) 17.4 % (20.5-51.5); MEAN CORPUSCULAR HEMOGLOBIN 29 pg (27-31); MEAN CORPUSCULAR HGB CONC 33 % (32-36); MONOCYTES # (AUTO) 0.7 K/uL (0.0-1.0); MONOCYTES % (AUTO) 11.7 % (1.7-9.3); NEUTROPHILS # (AUTO) 3.9 K/uL (1.8-7.7); PLATELET COUNT (AUTO) 182 K/uL (130-430); RED CELL DISTRIBUTION WIDTH 14.6 % (9.0-15.0)
[2018-08-15 07:36] VITALS: BP_SYST 159
[2018-08-15] MEDS: HEPARIN SODIUM,PORCINE 5000 UNITS/ML VIAL SUBCUT SCH ×2 (08:36→21:00)
[2018-08-15] MEDS ORDERED: METOPROLOL TARTRATE 25 MG TABLET PO SCH ×2 (09:00)
[2018-08-15] MEDS ORDERED: FUROSEMIDE 40 MG/4 ML VIAL IVP SCH (09:00)
[2018-08-15 10:44] VITALS: BP_SYST 160
[2018-08-15 11:13] LABS: CALCIUM 8.8 mg/dL (8.4-11.0); CREATININE 1.53 mg/dL (0.55-1.30)
[2018-08-15] MEDS ORDERED: CARVEDILOL 12.5 MG TABLET (COREG) PO ONE (15:45)
[2018-08-15 16:40] VITALS: BP_SYST 158
[2018-08-15 20:07] VITALS: BP_SYST 125
[2018-08-15] MEDS: CARVEDILOL 12.5 MG TABLET (COREG) PO SCH (21:29)
[2018-08-16] MEDS: MORPHINE 4 MG/ML INJ. SYRINGE IVP PRN ×2 (00:18→04:53)
[2018-08-16 00:26] VITALS: BP_SYST 135
[2018-08-16 07:02] LABS: CALCIUM 8.8 mg/dL (8.4-11.0); CREATININE 1.42 mg/dL (0.55-1.30)
[2018-08-16 07:40] LABS: HEMATOCRIT 44.9 % (36-54); HEMOGLOBIN 14.8 g/dL (14.0-18.0); MEAN CORPUSCULAR HEMOGLOBIN 28 pg (27-31); MEAN CORPUSCULAR HGB CONC 33 % (32-36); MEAN CORPUSCULAR VOLUME 86 fL (79.0-98.0); RED BLOOD CELL COUNT(AUTO) 5.23 MIL/uL (4.2-6.2); WHITE BLOOD COUNT (AUTO) 7.7 K/uL (4.8-10.8)
[2018-08-16 07:41] LABS: BASOPHILS # (AUTO) 0.1 K/uL (0.0-0.2); BASOPHILS % (AUTO) 0.9 % (0.0-2.0); EOSINOPHILS # (AUTO) 0.4 K/uL (0.0-0.4); EOSINOPHILS % (AUTO) 4.7 % (0.0-4.0); LYMPHOCYTES # (AUTO) 0.9 K/uL (1.0-5.5); MONOCYTES # (AUTO) 0.9 K/uL (0.0-1.0); MONOCYTES % (AUTO) 11.8 % (1.7-9.3); NEUTROPHILS # (AUTO) 5.4 K/uL (1.8-7.7); NEUTROPHILS % (AUTO) 70.6 % (40.0-70.0); PLATELET COUNT (AUTO) 174 K/uL (130-430); RED CELL DISTRIBUTION WIDTH 14.4 % (9.0-15.0)
[2018-08-16 08:23] VITALS: BP_SYST 128
[2018-08-16] MEDS ORDERED: LISINOPRIL 10 MG TABLET (PRINIVIL) PO SCH (09:00)
[2018-08-16] MEDS ORDERED: FUROSEMIDE 40 MG/4 ML VIAL IVP SCH (09:00)
[2018-08-16] MEDS ORDERED: SPIRONOLACTONE 25 MG TABLET (ALDACTONE) PO SCH (09:00)
[2018-08-16] MEDS: HEPARIN SODIUM,PORCINE 5000 UNITS/ML VIAL SUBCUT SCH (09:00)
[2018-08-16] MEDS: CARVEDILOL 12.5 MG TABLET (COREG) PO SCH (09:07)
[2018-08-16 10:55] VITALS: BP_SYST 128
[2018-08-16 12:26] VITALS: BP_SYST 128
== END 2018-08-16 11:25 | disposition home or self-care (01) | DRG 190 ==
LOC: SED 19:54 → STU 22:20
PROVIDERS: ADMIT General Practice; ATTEND General Practice
DX: I21.A1 Myocardial infarction type 2 (principal); N17.0 Acute kidney failure with tubular necrosis; E11.51 Type 2 diabetes mellitus with diabetic peripheral angiopathy without gangrene; E11.22 Type 2 diabetes mellitus with diabetic chronic kidney disease; F11.20 Opioid dependence, uncomplicated; I13.0 Hypertensive heart and chronic kidney disease with heart failure and stage 1 through stage 4 chronic kidney disease, or unspecified chronic kidney disease; I50.9 Heart failure, unspecified; I48.91 Unspecified atrial fibrillation; G43.909 Migraine, unspecified, not intractable, without status migrainosus; I42.0 Dilated cardiomyopathy; G89.4 Chronic pain syndrome; K21.9 Gastro-esophageal reflux disease without esophagitis; N18.9 Chronic kidney disease, unspecified; F14.10 Cocaine abuse, uncomplicated; R07.89 Other chest pain; F12.90 Cannabis use, unspecified, uncomplicated; Z80.9 Family history of malignant neoplasm, unspecified; Z91.19 Patient's noncompliance with other medical treatment and regimen; Z95.810 Presence of automatic (implantable) cardiac defibrillator; Z59.0 Homelessness; Z88.8 Allergy status to other drugs, medicaments and biological substances
CPT/HCPCS: 36415; 36600; 71045; 80048; 80053; 82803-TC; 83036; 83735-TC; 83880; 84484; 85025; 85610-TC; 85730-TC; 93005; 94640; 96372; 96374; 96375; 99285; G0378; J1200; J1644; J1650; J1940; J2270; J7620

== ENCOUNTER 2018-11-10 18:49 | Inpatient (IN) | payer OTHER ==
[~2018-11-10] VITALS: Ht 182.9 cm; Wt 131.3 kg
--- NOTE | 2018-11-10 18:50 | NUR ---
Placed in room 01 . Placed on cardiac exercise physiologist, blood pressure machine and pulse oximeter. To gown for exam. Side rails up.
--- NOTE | 2018-11-10 18:52 | NUR ---
Patient arrived, dropped off by friend. Patient c/c of chest pain, shortness of breath, dyspnea, flushed skin. Patient has extensive cardiac history of Afib, Cardiomyopathy, CHF, PM x2, Diabetes, and CVA. Patient states onset of chest pain was 1 hour ago, did not go away with rest. Patient changed into gown and placed on monitor. Will continue to follow up and monitor.
[2018-11-10 18:54] VITALS: BP_SYST 167
[2018-11-10] MEDS ORDERED: ASPIRIN 81 MG TAB.CHEW PO ONE (19:00)
--- NOTE | 2018-11-10 19:00 | NUR ---
Dr. Cho at bedside for examination.
[2018-11-10 19:15] LABS: BASOPHILS # (AUTO) 0.1 K/uL (0.0-0.2); BASOPHILS % (AUTO) 0.7 % (0.0-2.0); EOSINOPHILS # (AUTO) 0.3 K/uL (0.0-0.4); EOSINOPHILS % (AUTO) 3.7 % (0.0-4.0); HEMATOCRIT 43.5 % (36-54); HEMOGLOBIN 14.2 g/dL (14.0-18.0); LYMPHOCYTES # (AUTO) 1.2 K/uL (1.0-5.5); LYMPHOCYTES % (AUTO) 17.9 % (20.5-51.5); MEAN CORPUSCULAR HEMOGLOBIN 28 pg (27-31); MEAN CORPUSCULAR HGB CONC 33 % (32-36); MEAN CORPUSCULAR VOLUME 85 fL (79.0-98.0); MONOCYTES # (AUTO) 0.5 K/uL (0.0-1.0); MONOCYTES % (AUTO) 7.7 % (1.7-9.3); NEUTROPHILS # (AUTO) 4.9 K/uL (1.8-7.7); PLATELET COUNT (AUTO) 169 K/uL (130-430); RED BLOOD CELL COUNT(AUTO) 5.11 MIL/uL (4.2-6.2); RED CELL DISTRIBUTION WIDTH 15.2 % (9.0-15.0)
--- NOTE | 2018-11-10 19:22 | NUR ---
ER at bedside examining patient.
[2018-11-10 19:31] LABS: CREATININE 1.59 mg/dL (0.55-1.30); POTASSIUM 3.9 mmol/L (3.5-5.1)
[2018-11-10 19:36] LABS: ALBUMIN 3.9 g/dL (3.4-4.8); TOTAL BILIRUBIN 0.3 mg/dL (0.0-1.0)
--- NOTE | 2018-11-10 19:44 | NUR ---
Medication Reconciliation Attempted to try and reconcile medications. Patient knows medications, and frequency, but unknown doses. Verified pharmacy, attempted to call, they are closed. Patient states he takes: Lisinopril Carvedilol Lasix Potassium [facility] at [address] [place] [address] in [place] is the pharmacy.
[2018-11-10 20:00] LABS: CKMB RELATIVE INDEX 0.8 (0.0-2.9); CREATINE KINASE MB 4.8 ng/mL (0-3.6)
--- NOTE | 2018-11-10 20:05 | NUR ---
Patient resting comfortably, no notable signs of distress, MD made aware of pain and medications to be ordered.
[2018-11-10] MEDS ORDERED: MORPHINE 2 MG/ML INJ. SYRINGE IVP ONE (20:30)
[2018-11-10] MEDS ORDERED: DIPHENHYDRAMINE INJ 50 MG/ML VIAL IM ONE (20:30)
[2018-11-10] MEDS ORDERED: DIPHENHYDRAMINE HCL 25 MG CAPSULE PO ONE (21:00)
--- NOTE | 2018-11-10 21:11 | NUR ---
Patient given IV pain medication and Po benadryl for relief of pain and itching. Will continue to follow up and monitor.
[2018-11-10 21:31] LABS: BILIRUBIN,URINE NEGATIVE (NEGATIVE); BLOOD, URINE NEGATIVE (NEGATIVE); CLARITY/URINE CLEAR (CLEAR); COLOR,URINE YELLOW (YELLOW); GLUCOSE,URINE NEGATIVE (NEGATIVE); KETONES,URINE TRACE (NEGATIVE); LEUKOCYTE ESTERASE ,URINE NEGATIVE (NEGATIVE); NITRITE, URINE NEGATIVE (NEGATIVE); PH,URINE 5.5 (5.0-8.0); PROTEIN URINE 1+ (NEGATIVE); UROBILINOGEN,URINE 0.2 (0.2-1.0)
[2018-11-10 21:44] LABS: BACTERIA,URINE FEW /HPF (None Seen); RBC,URINE NONE SEEN /HPF (0-3); WBC,URINE 0-3 /HPF (0-3)
[2018-11-10 21:45] LABS: MUCUS,URINE 1+ /LPF (None Seen)
[2018-11-10 21:47] LABS: BARBITURATE, URINE NEGATIVE (NEG <=200); BENZODIAZEPINE, URINE NEGATIVE (NEG <=150); CANNABINOID, URINE POSITIVE (NEG <=50); COCAINE, URINE NEGATIVE (NEG <=150); METHAMPHETAMINES SCREEN,URINE NEGATIVE (NEG <=500); OPIATE, URINE NEGATIVE (NEG <=100); PHENCYCLIDINE SCREEN,URINE NEGATIVE (NEG <=25); UR TRICYCLIC ANTIDEPRESSANTS NEGATIVE (NEG <=300); URINE AMPHETAMINE NEGATIVE (NEG <=500); URINE METHADONE NEGATIVE (NEG <=200); URINE OXYCODONE SCREEN NEGATIVE (NEG <=100); URINE PROPOXYPHENE SCREEN NEGATIVE (NEG <=300)
[2018-11-10] MEDS ORDERED: ACETAMINOPHEN 325 MG TABLET PO PRN (22:00)
[2018-11-10] MEDS ORDERED: ONDANSETRON 4 MG ODT TAB PO PRN (22:00)
[2018-11-10] MEDS ORDERED: MORPHINE 2 MG/ML INJ. SYRINGE IVP PRN (22:00)
--- NOTE | 2018-11-10 22:20 | NUR ---
Spoke with Shonda from [facility], okay to take patient in 10-15 minutes to room 135.
--- NOTE | 2018-11-10 22:37 | NUR ---
Patient will be admitted to care of Dr. Welch. Admitted to Telemetry unit. Will go to room 135. Belongings list completed. Summary report printed. Report will be given at bedside.
--- NOTE | 2018-11-10 22:45 | NUR ---
ADMISSION Patient admitted by Dr. Rasmussen arrived via gurney to room 118-B with a diagnosis of Chest pain. Received report from MIKE Escudero. Patient able to transfer to bed. Alert and oriented. Oriented to room, hospital policies and unit procedures. Needs attended. Kept patient warm and comfortable.
[2018-11-10 22:56] VITALS: BP_SYST 137
--- NOTE | 2018-11-10 23:00 | NUR ---
Initial Note Received patient awake, alert and oriented but very sleepy. No SOB noted. Denies any chest pain or n/v at this time. Patient able to ambulate with steady gait. Assessment done. Saline locks flushed. Skin intact and no peripheral edema noted. Several tattoos noted as well. Belongings noted. Call light within reach. Bed alarm off per patient's request. Bed at lowest position at all times. Needs attended. Kept warm and comfortable.
--- NOTE | 2018-11-10 23:10 | NUR ---
Consultation Paged Reason for Consultation: NSTEMI Was consult called: Y Person who was notified: Lisa Consulting Physician: Roberto Waters Ordering Physician: Dr. Welch
--- NOTE | 2018-11-11 00:30 | NUR ---
RN Note Patient sleeping at this time. No SOB or grimacing noted.
--- NOTE | 2018-11-11 02:40 | NUR ---
Pain med Pain medication given per patient's request. Comfort measures provided. Needs attended. Kept comfortable.
[2018-11-11] MEDS: MORPHINE 4 MG/ML INJ. SYRINGE IVP PRN ×5 (02:43→20:33)
--- NOTE | 2018-11-11 04:00 | NUR ---
RN Note Asleep. Moves occasionally. No distress noted.
[2018-11-11] MEDS ORDERED: FURO-149 PO (04:49)
[2018-11-11] MEDS ORDERED: LISI-600 PO (04:49)
[2018-11-11] MEDS ORDERED: POTA20TA83 PO (04:49)
[2018-11-11] MEDS ORDERED: CARV12.548 PO (04:49)
--- NOTE | 2018-11-11 06:21 | NUR ---
End Note Afebrile. VS stable. Medicated for pain once all night. No complain of SOB or n/v throughout the night. On fluid restriction, patient aware. AM labs today. Daily weight taken. Care and monitoring provided per protocol. Call light within reach. Bed alarm off and at lowest position at all times. Needs attended. Kept warm and comfortable. NSR on monitor.
[2018-11-11 06:50] LABS: BASOPHILS # (AUTO) 0.1 K/uL (0.0-0.2); BASOPHILS % (AUTO) 0.9 % (0.0-2.0); EOSINOPHILS # (AUTO) 0.3 K/uL (0.0-0.4); EOSINOPHILS % (AUTO) 4.4 % (0.0-4.0); HEMATOCRIT 40.4 % (36-54); HEMOGLOBIN 13.2 g/dL (14.0-18.0); LYMPHOCYTES # (AUTO) 1.3 K/uL (1.0-5.5); LYMPHOCYTES % (AUTO) 17.1 % (20.5-51.5); MEAN CORPUSCULAR HEMOGLOBIN 28 pg (27-31); MEAN CORPUSCULAR HGB CONC 33 % (32-36); MEAN CORPUSCULAR VOLUME 85 fL (79.0-98.0); MONOCYTES # (AUTO) 0.7 K/uL (0.0-1.0); MONOCYTES % (AUTO) 8.6 % (1.7-9.3); NEUTROPHILS # (AUTO) 5.3 K/uL (1.8-7.7); PLATELET COUNT (AUTO) 160 K/uL (130-430); RED BLOOD CELL COUNT(AUTO) 4.75 MIL/uL (4.2-6.2); RED CELL DISTRIBUTION WIDTH 14.7 % (9.0-15.0); WHITE BLOOD COUNT (AUTO) 7.7 K/uL (4.8-10.8)
[2018-11-11 07:12] LABS: ALBUMIN 3.3 g/dL (3.4-4.8); CALCIUM 8.5 mg/dL (8.4-11.0); CREATININE 1.44 mg/dL (0.55-1.30); THYROID STIMULATING HORMONE 3.7 uIu/mL (0.36-3.74); TOTAL BILIRUBIN 0.3 mg/dL (0.0-1.0)
[2018-11-11 07:37] VITALS: BP_SYST 151
--- NOTE | 2018-11-11 07:47 | NUR ---
AM ROUNDS: Patient is alert and oriented x4. Medicated for mid sternum pain 9/10, sharp pain, patient was browsing on his cellphone when complained of pain. No cough, no shortness of breath. Call light within reach.
[2018-11-11] MEDS: POTASSIUM CHLORIDE 20 MEQ TAB.PRT.SR PO SCH (09:27)
--- NOTE | 2018-11-11 09:30 | NUR ---
Rounds: IV on the left hand was out, with minimal bleeding noted.
[2018-11-11] MEDS: SPIRONOLACTONE 25 MG TABLET (ALDACTONE) PO SCH (09:31)
[2018-11-11] MEDS: CARVEDILOL 6.25 MG TABLET (COREG) PO SCH ×2 (09:31→17:45)
[2018-11-11] MEDS: FUROSEMIDE 20 MG TABLET PO SCH (09:31)
[2018-11-11] MEDS: LISINOPRIL 10 MG TABLET (PRINIVIL) PO SCH (09:32)
--- NOTE | 2018-11-11 10:04 | NUR ---
CONSULTATION PAGED/CALLED Reason for Consultation: MADELINE Person Who was Notified: SPOKE WITH ABBIE FROM OFFICE . Consulting Physician: DIEGO TORRES Stunt Man Specialty: NEPHRO Ordering Physician: FLAQUITO TORRES A
[2018-11-11 11:44] VITALS: BP_SYST 143
--- NOTE | 2018-11-11 12:07 | NUR ---
Rounds: Seen in bed, using his cell phone. Medicated for midchest pain 02/11 per patient's request.
--- NOTE | 2018-11-11 12:50 | NUR ---
Rounds; Vomited moderate amount of yellowish emesis, Zofran 4 mg ODT given. Ice chips offered for now. Refused lunch.
[2018-11-11 13:00] VITALS: BP_SYST 146
--- NOTE | 2018-11-11 15:00 | NUR ---
Rounds: Patient is asleep. Breathing is even, non labored.
[2018-11-11 17:32] VITALS: BP_SYST 119
--- NOTE | 2018-11-11 18:40 | NUR ---
end of shift: needs attended. no change in assessment. encouraged to use the call light for help.
--- NOTE | 2018-11-11 19:30 | NUR ---
Initial Note Received patient awake, alert and oriented on his phone. No SOB noted. Denies any chest pain or n/v at this time. Patient able to ambulate with steady gait. Saline lock flushed. Skin intact and no peripheral edema noted. Several tattoos noted as well. Emptied urinal with ken colored urine about 200 ml. Snacks given as requested. Call light within reach. Bed alarm off per patient's request. Bed at lowest position at all times. Needs attended. Kept warm and comfortable. NSR on monitor.
[2018-11-11 20:00] VITALS: BP_SYST 112
--- NOTE | 2018-11-11 20:15 | NUR ---
Dr. Mary Hernandez saw and talked to the patient. Made him aware that patient has 1 kidney only since and his + urine drug test.
--- NOTE | 2018-11-11 20:30 | NUR ---
RN Note Due shot given, educated on side effects of blood thinner. Medicated for pain as well. Comfort measures provided. Repositions himself. Will continue to monitor.
[2018-11-11] MEDS: ENOXAPARIN SODIUM 40 MG/0.4 ML SYRINGE SUBCUT SCH (20:37)
[2018-11-11] MEDS ORDERED: TEMAZEPAM 15 MG CAPSULE PO PRN (21:00)
--- NOTE | 2018-11-11 22:30 | NUR ---
RN Note Patient awake and alert on his phone watching. No other complaints. Given ice cream as requested. Needs attended.
[2018-11-12] VITALS: BP_SYST 125
[2018-11-12] MEDS: MORPHINE 4 MG/ML INJ. SYRINGE IVP PRN ×5 (00:54→20:34)
--- NOTE | 2018-11-12 01:00 | NUR ---
Pain med Medicated for pain. Comfort measures provided as well. Will continue to monitor. Needs attended.
--- NOTE | 2018-11-12 04:00 | NUR ---
RN Note Arousable. Able to sleep for few hours only. Complain of pain but not due yet. Offered sleeping medication but refused. Snacks given. Kept warm and comfortable.
--- NOTE | 2018-11-12 06:10 | NUR ---
End Note Afebrile. VS stable. Medicated for pain three times all night. He said that it only works for 2 hours. No complain of SOB or n/v throughout the night. On fluid restriction. AM labs today. Daily weight taken. Care and monitoring provided per protocol. Call light within reach. Bed alarm off and at lowest position at all times. Needs attended. Kept warm and comfortable. SR with BBB on monitor. Dr. Hernandez saw the patient last night.
[2018-11-12 06:27] LABS: CALCIUM 8.6 mg/dL (8.4-11.0); CREATININE 1.39 mg/dL (0.55-1.30); PHOSPHORUS 3.2 mg/dL (2.7-4.5); POTASSIUM 3.6 mmol/L (3.5-5.1)
[2018-11-12 07:03] LABS: BASOPHILS # (AUTO) 0.2 K/uL (0.0-0.2); BASOPHILS % (AUTO) 1.7 % (0.0-2.0); EOSINOPHILS # (AUTO) 0.7 K/uL (0.0-0.4); EOSINOPHILS % (AUTO) 6.8 % (0.0-4.0); HEMATOCRIT 38.7 % (36-54); HEMOGLOBIN 13.5 g/dL (14.0-18.0); LYMPHOCYTES # (AUTO) 1.2 K/uL (1.0-5.5); LYMPHOCYTES % (AUTO) 12.6 % (20.5-51.5); MEAN CORPUSCULAR HEMOGLOBIN 29 pg (27-31); MEAN CORPUSCULAR HGB CONC 35 % (32-36); MEAN CORPUSCULAR VOLUME 85 fL (79.0-98.0); MONOCYTES # (AUTO) 0.7 K/uL (0.0-1.0); MONOCYTES % (AUTO) 7.1 % (1.7-9.3); NEUTROPHILS # (AUTO) 7.1 K/uL (1.8-7.7); NEUTROPHILS % (AUTO) 71.8 % (40.0-70.0); PLATELET COUNT (AUTO) 299 K/uL (130-430); RED BLOOD CELL COUNT(AUTO) 4.58 MIL/uL (4.2-6.2); RED CELL DISTRIBUTION WIDTH 14.8 % (9.0-15.0); WHITE BLOOD COUNT (AUTO) 9.9 K/uL (4.8-10.8)
--- NOTE | 2018-11-12 07:50 | NUR ---
AM ASSESSMENT. PT ALERT, ABLE TO EXPRESS HIS BASIC NEEDS, AND ATTENDED, FLUID RESTRICTION, DIET, MEDICATIONS WERE MENTIONED DURING CARE. VITAL SIGNS STABLE AT THIS HOUR.
[2018-11-12 08:00] VITALS: BP_SYST 123
[2018-11-12] MEDS: LISINOPRIL 10 MG TABLET (PRINIVIL) PO SCH (08:58)
[2018-11-12] MEDS: FUROSEMIDE 20 MG TABLET PO SCH (08:58)
[2018-11-12] MEDS: SPIRONOLACTONE 25 MG TABLET (ALDACTONE) PO SCH (08:59)
[2018-11-12] MEDS: POTASSIUM CHLORIDE 20 MEQ TAB.PRT.SR PO SCH (09:00)
[2018-11-12] MEDS: CARVEDILOL 6.25 MG TABLET (COREG) PO SCH ×2 (09:07→18:09)
--- NOTE | 2018-11-12 09:07 | NUR ---
PAIN. PT COMPLAINED OF CHEST DISCOMFORT, WHILE TALKING ON THE PHONE, AND COUGHING, HE POINTED TOWARDS HIS ARM, " A SHOT', MEDICATED WITH MORPHINE 4 MG IVP ORDERED.
[2018-11-12 11:45] VITALS: BP_SYST 124
--- NOTE | 2018-11-12 14:40 | NUR ---
PAIN. PT LISTENING VIA EARPHONE AND WATCHING SHOW FROM CELL PHONE, HE ASKED FOR PAIN SHOT FOR CHEST PAIN, MORPHINE 4 MG IVP GIVEN.
[2018-11-12 16:19] VITALS: BP_SYST 98
--- NOTE | 2018-11-12 17:10 | NUR ---
REST. PT WATCHING FAVORITE SHOW ON HIS CELL PHONE, NO COMPLAINTS OF NAUSEA, NO PAIN.
--- NOTE | 2018-11-12 19:30 | NUR ---
OPENING NOTE RECEIVED CARE OF PT. PT RESTING IN BED, AAOX4, NO S/S OF ACUTE DISTRESS. PT BREATHING IS UNLABORED TO ROOM AIR. IV IS SALINE LOCKED, NO SIGN OF INFILTRATION AT IV SITE. PT ORIENTED TO USE OF CALL LIGHT AND ENCOURAGED TO CALL FOR ANY ASSISTANCE. SAFETY PRECAUTIONS ARE IN PLACE: BED LOCKED IN LOWEST POSITION, CALL LIGHT WITH PT, SIDE RAILS UP X2, BED ALARM ON. WILL MONITOR.
[2018-11-12 20:00] VITALS: BP_SYST 108
[2018-11-12] MEDS: ENOXAPARIN SODIUM 40 MG/0.4 ML SYRINGE SUBCUT SCH (20:33)
--- NOTE | 2018-11-12 20:34 | NUR ---
PAIN/MORPHINE PT REPORTING SEVERE CHEST PAIN. MORPHINE IVP 4MG ADMINISTERED. MEDICATION ACTION AND POTENTIAL SIDE EFFECTS EXPLAINED TO PT. PT VERBALIZED UNDERSTANDING. PT ENCOURAGED TO CALL FOR ASSISTANCE, CALL LIGHT IS WITH PT. SAFETY MAINTAINED. WILL MONITOR.
--- NOTE | 2018-11-12 22:35 | NUR ---
RN ROUNDS: PT RESTING IN BED, AAOX4, WATCHING HIS PHONE. NO APPARENT DISTRESS, BREATHING IS UNLABORED TO ROOM AIR. SAFETY PRECAUTIONS ARE IN PLACE. WILL MONITOR.
[2018-11-13] VITALS: BP_SYST 116
[2018-11-13] MEDS: MORPHINE 4 MG/ML INJ. SYRINGE IVP PRN ×3 (00:34→08:50)
--- NOTE | 2018-11-13 00:34 | NUR ---
PAIN/MORPHINE PT REPORTING SEVERE CHEST PAIN. MORPHINE IVP 4MG ADMINISTERED. MEDICATION ACTION AND POTENTIAL SIDE EFFECTS EXPLAINED TO PT. PT VERBALIZED UNDERSTANDING. BREATHING IS UNLABORED TO ROOM AIR, NO S/S OF RESPIRATORY DISTRESS. PT ENCOURAGED TO CALL FOR ASSISTANCE, CALL LIGHT IS WITH PT. SAFETY MAINTAINED. WILL MONITOR.
--- NOTE | 2018-11-13 02:15 | NUR ---
SLEEPING PT RESTING IN BED WITH EYES CLOSED. PT IS ON HIS LEFT SIDE, VISIBLE SYMMETRICAL RISE AND FALL OF CHEST TO ROOM AIR. NO S/S OF ACUTE DISTRESS, PT APPEARS TO BE COMFORTABLE AT THIS TIME. SAFETY PRECAUTIONS MAINTAINED. WILL MONITOR.
--- NOTE | 2018-11-13 04:38 | NUR ---
PAIN/MORPHINE PT REPORTING SEVERE CHEST PAIN. MORPHINE IVP 4MG ADMINISTERED. MEDICATION ACTION AND POTENTIAL SIDE EFFECTS EXPLAINED TO PT. PT VERBALIZED UNDERSTANDING. BREATHING IS UNLABORED TO ROOM AIR, NO S/S OF RESPIRATORY DISTRESS. PT ENCOURAGED TO CALL FOR ASSISTANCE, CALL LIGHT IS WITH PT. SAFETY PRECAUTIONS MAINTAINED. WILL CONTINUE TO MONITOR.
--- NOTE | 2018-11-13 06:39 | NUR ---
CLOSING NOTE PT RESTING IN BED, AAOX4, LOOKING AT HIS PHONE. NO S/S OF RESPIRATORY DISTRESS, NO SOB, BREATHING IS UNLABORED TO ROOM AIR. PT MEDICATED FOR PAIN THROUGHOUT THE NIGHT. ALL NEEDS MET DURING SHIFT. SAFETY PRECAUTIONS IN PLACE: BED LOCKED IN LOWEST POSITION, CALL LIGHT WITH PT, SIDE RAILS UP X2, PERSONAL ITEMS WITHIN REACH. WILL CONTINUE TO MONITOR UNTIL CARE IS ENDORSED TO DAY SHIFT RN.
[2018-11-13 07:01] LABS: BASOPHILS # (AUTO) 0.1 K/uL (0.0-0.2); BASOPHILS % (AUTO) 1.1 % (0.0-2.0); EOSINOPHILS # (AUTO) 0.3 K/uL (0.0-0.4); EOSINOPHILS % (AUTO) 4.1 % (0.0-4.0); HEMATOCRIT 39.7 % (36-54); LYMPHOCYTES # (AUTO) 1.6 K/uL (1.0-5.5); LYMPHOCYTES % (AUTO) 20.4 % (20.5-51.5); MEAN CORPUSCULAR HEMOGLOBIN 28 pg (27-31); MEAN CORPUSCULAR HGB CONC 33 % (32-36); MEAN CORPUSCULAR VOLUME 85 fL (79.0-98.0); MONOCYTES # (AUTO) 0.7 K/uL (0.0-1.0); MONOCYTES % (AUTO) 9.8 % (1.7-9.3); NEUTROPHILS # (AUTO) 4.9 K/uL (1.8-7.7); NEUTROPHILS % (AUTO) 64.6 % (40.0-70.0); PLATELET COUNT (AUTO) 154 K/uL (130-430); RED BLOOD CELL COUNT(AUTO) 4.66 MIL/uL (4.2-6.2); RED CELL DISTRIBUTION WIDTH 14.6 % (9.0-15.0); WHITE BLOOD COUNT (AUTO) 7.6 K/uL (4.8-10.8)
[2018-11-13 07:08] LABS: CALCIUM 8.6 mg/dL (8.4-11.0); CREATININE 1.51 mg/dL (0.55-1.30); PHOSPHORUS 3.2 mg/dL (2.7-4.5); POTASSIUM 3.9 mmol/L (3.5-5.1)
--- NOTE | 2018-11-13 07:20 | NUR ---
RN OPENING NOTE RECEIVED SBAR REPORT FROM ENDORSING NURSE AT BEDSIDE. PT COMPLAINING OF CHEST PAIN 5/10, PAIN MANAGEMENT MEDICATION SCHEDULED. SEE VS FLOW SHEET.
[2018-11-13 08:00] VITALS: BP_SYST 118
--- NOTE | 2018-11-13 08:35 | NUR ---
PAIN MANAGEMENT PT COMPLAINING OF PAIN 01/11. MORPHINE ADMINISTERED ORDERED PRN.
[2018-11-13] MEDS: CARVEDILOL 6.25 MG TABLET (COREG) PO SCH (08:51)
[2018-11-13] MEDS: POTASSIUM CHLORIDE 20 MEQ TAB.PRT.SR PO SCH (08:51)
[2018-11-13] MEDS: FUROSEMIDE 20 MG TABLET PO SCH (08:52)
[2018-11-13] MEDS: SPIRONOLACTONE 25 MG TABLET (ALDACTONE) PO SCH (08:52)
[2018-11-13] MEDS: LISINOPRIL 10 MG TABLET (PRINIVIL) PO SCH (08:52)
[2018-11-13 12:00] VITALS: BP_SYST 120
--- NOTE | 2018-11-13 12:00 | NUR ---
LUNCH TRAY PROVIDED PT AAO X 4, STATED HE WAS FEELING MILD CHEST PAIN WHICH WAS MANAGEABLE AT THIS TIME. i TOLD HIM I WOULD FOLLOW UP WITH HIM AFTER HE COMPLETED HIS LUNCH.
[2018-11-13] MEDS ORDERED: SPIR25TA PO (13:11)
--- NOTE | 2018-11-13 13:25 | NUR ---
PT ELOPED W/ANGIOCATH I NOTICED PT WAS NO LONGER IN HIS BED WHEN i RETURNED FROM LUNCH. PT LEFT HIS CARDIAC MONIOR ON THE BED AND LEFT WITH HIS POSSESSIONS, BUT THERE WAS NO EVIDENCE HIS ANGIOCATH WAS REMOVED. SECURITY NOTIFIED IMMEDIATELY, THEN NURSE REPORTED INCIDENT TO [employer].
== END 2018-11-13 13:25 | disposition left against medical advice (07) | DRG 469 ==
LOC: SED 18:49 → STU 21:22
PROVIDERS: ADMIT Internal Medicine Interventional Cardiology; ATTEND Internal Medicine Interventional Cardiology
DX: N17.0 Acute kidney failure with tubular necrosis (principal); E11.22 Type 2 diabetes mellitus with diabetic chronic kidney disease; I42.0 Dilated cardiomyopathy; E11.65 Type 2 diabetes mellitus with hyperglycemia; E66.01 Morbid (severe) obesity due to excess calories; I25.10 Atherosclerotic heart disease of native coronary artery without angina pectoris; I13.0 Hypertensive heart and chronic kidney disease with heart failure and stage 1 through stage 4 chronic kidney disease, or unspecified chronic kidney disease; I42.9 Cardiomyopathy, unspecified; E87.1 Hypo-osmolality and hyponatremia; I48.91 Unspecified atrial fibrillation; J44.9 Chronic obstructive pulmonary disease, unspecified; N18.3 Chronic kidney disease, stage 3 (moderate); R07.89 Other chest pain; Z53.21 Procedure and treatment not carried out due to patient leaving prior to being seen by health care provider; I50.42 Chronic combined systolic (congestive) and diastolic (congestive) heart failure; Z95.810 Presence of automatic (implantable) cardiac defibrillator; Z79.84 Long term (current) use of oral hypoglycemic drugs; Z68.39 Body mass index [BMI] 39.0-39.9, adult
CPT/HCPCS: 36415; 71045; 80048; 80053; 80061; 80307; 81000-TC; 82550-TC; 82553-TC; 82962; 83735-TC; 83880; 84100-TC; 84443-TC; 84484; 85025; 93005; 93306; 96374; 99285; G0378; J1650; J2270; Q0162; Q0163

== ENCOUNTER 2019-11-13 17:49 | Inpatient (IN) | payer OTHER, SELFPAY ==
[~2019-11-13] VITALS: Ht 188 cm; Wt 141.3 kg
[~2019-11-13 17:49] MED LIST changes: -ASPI81TA2 PO; -CARV3.1246 PO; -CARV6.2554 PO; -CYCL-10 PO; -DOCU-144 PO; -EFFEXOR; -HYDR-1189 PO; -LEVO500T20 PO; -LISI10TA5 PO; -LISI2.5T48 PO; -NORCO5 PO; +POTA20TA83 PO; -PRO40 PO; +SIMV10TA2 PO; -SIMV80TA2 PO; -SPIR25TA PO; -SPIR25TA4 PO; -WARF1TAB2 PO; -WARF7.5T46 PO
[2019-11-13 17:50] VITALS: BP_SYST 137
--- NOTE | 2019-11-13 17:50 | NUR ---
Patient to ER bed 1 to gown for evaluation. Side rails up.
--- NOTE | 2019-11-13 17:55 | NUR ---
Patient presented to ER C/O chest pain. Patient A&Ox4, skin pink & warm, ambulatory to ER, denies N/V/D, pain 02/11. Patient states he had sudden onset chest pain. Patient states he has pacemaker placed 2016.
[2019-11-13] MEDS ORDERED: MORPHINE 4 MG/ML INJ. SYRINGE IVP ONE ×2 (18:00→19:15)
[2019-11-13] MEDS ORDERED: NITROGLYCERIN 0.4 MG TAB.SUBL SL ONE (18:00)
[2019-11-13] MEDS ORDERED: DIPHENHYDRAMINE INJ 50 MG/ML VIAL IVP ONE ×2 (18:15→19:15)
[2019-11-13 18:25] LABS: BASOPHILS # (AUTO) 0.1 K/uL (0.0-0.2); BASOPHILS % (AUTO) 0.7 % (0.0-2.0); EOSINOPHILS # (AUTO) 0.2 K/uL (0.0-0.4); EOSINOPHILS % (AUTO) 2.2 % (0.0-4.0); HEMATOCRIT 48.4 % (36-54); HEMOGLOBIN 15.9 g/dL (14.0-18.0); LYMPHOCYTES # (AUTO) 1.6 K/uL (1.0-5.5); LYMPHOCYTES % (AUTO) 16.8 % (20.5-51.5); MEAN CORPUSCULAR HEMOGLOBIN 29 pg (27-31); MEAN CORPUSCULAR HGB CONC 33 % (32-36); MEAN CORPUSCULAR VOLUME 89 fL (79.0-98.0); MONOCYTES # (AUTO) 0.7 K/uL (0.0-1.0); MONOCYTES % (AUTO) 6.8 % (1.7-9.3); NEUTROPHILS # (AUTO) 7.2 K/uL (1.8-7.7); NEUTROPHILS % (AUTO) 73.5 % (40.0-70.0); PLATELET COUNT (AUTO) 218 K/uL (130-430); RED BLOOD CELL COUNT(AUTO) 5.42 MIL/uL (4.2-6.2); RED CELL DISTRIBUTION WIDTH 15.4 % (9.0-15.0); WHITE BLOOD COUNT (AUTO) 9.8 K/uL (4.8-10.8)
[2019-11-13 18:43] LABS: CALCIUM 8.9 mg/dL (8.4-11.0); CREATININE 2.06 mg/dL (0.55-1.30); POTASSIUM 4.6 mmol/L (3.5-5.1); TOTAL BILIRUBIN 0.5 mg/dL (0.0-1.0)
[2019-11-13 18:44] LABS: ALBUMIN 4.4 g/dL (3.4-4.8)
--- NOTE | 2019-11-13 19:00 | NUR ---
Venkata RT at bedside for ABG
[2019-11-13] MEDS ORDERED: RIVAROXABAN 10 MG TABLET PO ONE (19:15)
--- NOTE | 2019-11-13 19:19 | NUR ---
REPORT TO OCTOBER RN
--- NOTE | 2019-11-13 19:21 | NUR ---
Patient refused Nitrostat 0.4 mg SL, Dr. Galindo notified. Chest pain, pain rate 8.
--- NOTE | 2019-11-13 19:22 | NUR ---
Change Oxygen canula 4 L/min to non rebreather mask [address] Galindo verbal order.
[2019-11-13] MEDS ORDERED: ASPI-1155 PO (19:27)
[2019-11-13] MEDS ORDERED: LIPITOR (19:28)
[2019-11-13] MEDS ORDERED: Lipitor PO (19:29)
[2019-11-13] MEDS ORDERED: DOCU-144 PO (19:30)
--- NOTE | 2019-11-13 20:01 | NUR ---
Chest pain, 5/10, HR 84, Oxygen sat 96 %
[2019-11-13 20:11] LABS: BILIRUBIN,URINE NEGATIVE (NEGATIVE); BLOOD, URINE NEGATIVE (NEGATIVE); CLARITY/URINE CLEAR (CLEAR); COLOR,URINE YELLOW (YELLOW); GLUCOSE,URINE NEGATIVE (NEGATIVE); KETONES,URINE NEGATIVE (NEGATIVE); LEUKOCYTE ESTERASE ,URINE NEGATIVE (NEGATIVE); NITRITE, URINE NEGATIVE (NEGATIVE); PH,URINE 6.5 (5.0-8.0); PROTEIN URINE 1+ (NEGATIVE)
--- NOTE | 2019-11-13 20:14 | NUR ---
Patient will be admitted to care of Dr. Welch. Admitted to Tele unit. Will go to room 101B. Belongings list completed. Complete and up to date summary report printed. SBAR report to be given at bedside with opportunity for questions.
--- NOTE | 2019-11-13 20:20 | NUR ---
Transfer to Tele via ACLS protocol. Licensed nurse present. IV present no signs or symptoms of infiltration.
--- NOTE | 2019-11-13 20:23 | NUR ---
ADMISSION NOTE Received patient from ER via guresther, received report from RN. Patient admitted with diagnosis of CHEST PAIN. Patient oriented to hospital routine, call light, toileting and safety-patient verbalized understanding.
[2019-11-13 20:38] LABS: CANNABINOID, URINE POSITIVE (NEG <=50); OPIATE, URINE POSITIVE (NEG <=100); UR TRICYCLIC ANTIDEPRESSANTS NEGATIVE (NEG <=300); URINE OXYCODONE SCREEN NEGATIVE (NEG <=100); URINE PROPOXYPHENE SCREEN NEGATIVE (NEG <=300)
[2019-11-13 20:39] LABS: BARBITURATE, URINE NEGATIVE (NEG <=200); BENZODIAZEPINE, URINE NEGATIVE (NEG <=150); COCAINE, URINE NEGATIVE (NEG <=150); METHAMPHETAMINES SCREEN,URINE NEGATIVE (NEG <=500); PHENCYCLIDINE SCREEN,URINE NEGATIVE (NEG <=25); URINE AMPHETAMINE NEGATIVE (NEG <=500); URINE METHADONE NEGATIVE (NEG <=200)
[2019-11-13 20:54] LABS: BACTERIA,URINE FEW /HPF (None Seen); RBC,URINE NONE SEEN /HPF (0-3); WBC,URINE NONE SEEN /HPF (0-3)
[2019-11-13 21:01] VITALS: BP_SYST 128
[2019-11-13 22:00] VITALS: BP_SYST 121
[2019-11-13] MEDS ORDERED: INSULIN REGULAR, HUMAN 100 UNITS/ML, 10 ML VIAL (humuLIN R) SUBCUT PRN (22:00)
[2019-11-13] MEDS ORDERED: DOCUSATE SODIUM 100 MG CAPSULE PO PRN (22:00)
[2019-11-13] MEDS ORDERED: NITROGLYCERIN 0.4 MG TAB.SUBL SL PRN (22:00)
[2019-11-13] MEDS ORDERED: ASPIRIN 81 MG TABLET(ECOTRIN) PO ONE (22:00)
[2019-11-13] MEDS ORDERED: DEXTROSE 50% JECT 50 ML DISP.SYRIN IVP PRN (22:00)
--- NOTE | 2019-11-13 22:00 | NUR ---
MEDICATION PASS SCHEDULED MEDICATION ADMINISTERED ORDERED. DISCUSSED MEDICATION ACTIONS AND POTENTIAL SIDE EFFECTS. PT VERBALIZED UNDERSTANDING. PT RESTING IN BED. BREATHING EVEN AND UNLABORED TO ROOM AIR. PT DENIES ANY PAIN AT THIS TIME. VSS. O2 SAT 97%. BED LOCKED IN LOWEST LEVEL. CALL LIGHT WITHIN REACH. SAFETY AND ISOLATION PRECAUTIONS MAINTAINED. WILL CONTINUE TO MONITOR.
[2019-11-13] MEDS ORDERED: TEMAZEPAM 15 MG CAPSULE PO PRN (22:45)
[2019-11-13] MEDS ORDERED: HYDROcodone/ACETAMIN 5-325 MG TAB (NORCO/ VICODIN) PO PRN (23:00)
[2019-11-13] MEDS ORDERED: ALPRAZolam 0.25 MG TABLET PO PRN (23:00)
[2019-11-13] MEDS ORDERED: ONDANSETRON HCL 4 MG/2 ML VIAL IVP PRN (23:00)
[2019-11-13] MEDS ORDERED: ACETAMINOPHEN 325 MG TABLET PO PRN (23:00)
[2019-11-13] MEDS ORDERED: HYDROcodone/ACETAMIN 10-325 MG TAB PO PRN (23:00)
[2019-11-14] VITALS: BP_SYST 108
--- NOTE | 2019-11-14 01:05 | NUR ---
PAIN/NORCO MEDICATION PT REPORTING PAIN. ADMINISTERED NORCO ORDERED PRN. DISCUSSED MEDICATION ACTIONS AND POTENTIAL SIDE EFFECTS. PT STATED THAT HE IS HAVING MILD SHORTNESS OF BREATH AT THIS TIME. CHECKED O2, AND IT'S 97%. ASKED PT IF HE WANTS TO PUT ON OXYGEN, BUT PT REFUSED. CALL LIGHT WITHIN REACH. SAFETY PRECAUTIONS MAINTAINED. WILL CONTINUE TO MONITOR.
--- NOTE | 2019-11-14 01:49 | NUR ---
CONSULTATION PAGED/CALLED Reason for Consultation: CHEST PAIN Person Who was Notified: MED Consulting Physician: DR. DEUTSCH. DR GRACE IS CUSTOM FEED CORN OPERATOR Information [employer] Systems Instructor Specialty: Ordering Physician: DR. ESQUIVEL
--- NOTE | 2019-11-14 02:55 | NUR ---
RN ROUNDS PT RESTING IN BED WITH EYES CLOSED. NO S/S OF DISTRESS NOTED. BREATHING EVEN AND UNLABORED TO ROOM AIR. SIDE RAILS X2. BED LOCKED IN LOWEST LEVEL. SAFETY, FALL, AND ISOLATION PRECAUTIONS MAINTAINED. WILL CONTINUE TO MONITOR.
--- NOTE | 2019-11-14 06:54 | NUR ---
CLOSING NOTES/ACCU-CHECK BLOOD SUGAR OF 107. NO INSULIN COVERAGE PER SLIDING SCALE AT THIS TIME. PT RESTING IN BED. NO S/S OF DISTRESS NOTED. BREATHING EVEN AND UNLABORED TO ROOM AIR. O2 SAT 95%. SIDE RAILS X2. BED LOCKED IN LOWEST LEVEL. SAFETY, FALL, AND ISOLATION PRECAUTIONS MAINTAINED. WILL CONTINUE TO MONITOR UNTIL ENDORSE TO DAY SHIFT RN.
[2019-11-14 07:52] VITALS: BP_SYST 129
[2019-11-14 07:58] LABS: BASOPHILS # (AUTO) 0.1 K/uL (0.0-0.2); BASOPHILS % (AUTO) 1.1 % (0.0-2.0); EOSINOPHILS # (AUTO) 0.3 K/uL (0.0-0.4); EOSINOPHILS % (AUTO) 3.1 % (0.0-4.0); HEMATOCRIT 43.8 % (36-54); HEMOGLOBIN 14.3 g/dL (14.0-18.0); LYMPHOCYTES # (AUTO) 1.9 K/uL (1.0-5.5); LYMPHOCYTES % (AUTO) 22.7 % (20.5-51.5); MEAN CORPUSCULAR HEMOGLOBIN 29 pg (27-31); MEAN CORPUSCULAR HGB CONC 33 % (32-36); MEAN CORPUSCULAR VOLUME 88 fL (79.0-98.0); MONOCYTES # (AUTO) 0.7 K/uL (0.0-1.0); MONOCYTES % (AUTO) 8.4 % (1.7-9.3); NEUTROPHILS # (AUTO) 5.3 K/uL (1.8-7.7); NEUTROPHILS % (AUTO) 64.7 % (40.0-70.0); PLATELET COUNT (AUTO) 173 K/uL (130-430); RED BLOOD CELL COUNT(AUTO) 4.96 MIL/uL (4.2-6.2); RED CELL DISTRIBUTION WIDTH 15.5 % (9.0-15.0); WHITE BLOOD COUNT (AUTO) 8.3 K/uL (4.8-10.8)
[2019-11-14 08:43] LABS: ALBUMIN 3.6 g/dL (3.4-4.8); CALCIUM 8.3 mg/dL (8.4-11.0); CREATININE 1.62 mg/dL (0.55-1.30); THYROID STIMULATING HORMONE 2.58 uIu/mL (0.36-3.74); TOTAL BILIRUBIN 0.3 mg/dL (0.0-1.0)
--- NOTE | 2019-11-14 09:10 | NUR ---
PUDDLER PILE DRIVING, DR DEUTSCH ORDERED PACEMAKER TO BE INTERROGATED BY [employer]. SPOKE TO [facility] AND AWAITING FOR THE [employer]' S REP TO CALL ME FOR AN ETA.
--- NOTE | 2019-11-14 09:14 | NUR ---
Nutrition Update Moustapha scale 16 noted. Pt admitted for chest pain Diet: Regular, Cardiac, Low Carb-45 BMI: 38.4 kg/m2 RD to follow per nutrition care standards.
[2019-11-14] MEDS: ASPIRIN 81 MG TAB.CHEW PO SCH (09:26)
[2019-11-14] MEDS: FUROSEMIDE 40 MG TABLET PO SCH (09:33)
[2019-11-14] MEDS: LISINOPRIL 20 MG TABLET PO SCH (09:34)
[2019-11-14] MEDS: CARVEDILOL 12.5 MG TABLET (COREG) PO SCH ×2 (09:34→20:13)
--- NOTE | 2019-11-14 10:06 | NUR ---
VALORIE FROM [employer] CAME TO INTERROGATE THE DEFIBRILATOR. HE PUT HIS REPORT IN THE CHART.
[2019-11-14 11:39] VITALS: BP_SYST 128
[2019-11-14] MEDS ORDERED: ATORVASTATIN 10 MG TABLET PO ONE (12:00)
[2019-11-14] MEDS: MORPHINE 2 MG/ML INJ. SYRINGE IVP PRN (14:43)
--- NOTE | 2019-11-14 15:54 | NUR ---
OPENING NOTES: PT IS ALERT, AWAKE, ORIENTED, ABLE TO MAKE NEEDS KNOWN. RESPIRATIONS EVEN AND UNLABORED. NO ACUTE DISTRESS NOTED. NO ACUTE PAIN NOTED. WILL CONTINUE TO MONTIOR. Addendum: 11/14/19 at 1557 by Wenceslao Dewitt RN OPENING NOTE TIME CORRECTION FOR 0730
[2019-11-14 16:00] VITALS: BP_SYST 131
[2019-11-14] MEDS ORDERED: RIVAROXABAN 10 MG TABLET PO SCH (18:00)
--- NOTE | 2019-11-14 18:58 | NUR ---
CLOSING NOTES: HOURLY ROUNDING PERFORMED. PT ALERT, AWAKE, ORIENTED. RESPIRATIONS EVEN AND UNLABORED. ROOM AIR. NO ACUTE DISTRESS AND NO PAIN NOTED. WILL ENDORSE TO CUSTOM FEED MILL OPERATOR FOR CONTINUITY OF CARE.
[2019-11-14 19:00] VITALS: BP_SYST 129
--- NOTE | 2019-11-14 19:15 | NUR ---
change of shift.pt.presents isolation status;DROPLET;R/O COVID 19.pt.presents quiescent affect;calm,resting viewing programing via telephone.no c/o pain,nausea.pt.utilizing the urinal w/in access of the pt.pt.capable to ambulate/reposition self.w/out assistance. general status stable.respiratory status stable;unlabored@room air.call light/telephone w/in reach of the pt.
[2019-11-14 20:00] VITALS: BP_SYST 129
--- NOTE | 2019-11-14 20:00 | NUR ---
pt.assessed.v/s assessed;values w/in normal limits.no c/o pain,nausea.pt.presents hx;diabetes.diet status:order:regular.i have apprised the pt.that snacks/beverages are available w/in the shift.pt.stated bring any food items/juices.i have provided multiple variety of food items/juices.i have attended to the urinal:measured/cleaned placed w/in access of the pt.general status stable. respiratory status stable@room air:o2-sat%=98%.call light/telephone w/in reach of the pt.
--- NOTE | 2019-11-14 20:30 | NUR ---
i have assessed the blood glucose:value:159mg/dl.no insulin coverage to be administered per the insulin scale parameters; insulin coverage ordered to begin@201mg/dl.i have apprised the pt. of the blood glucose value/no insulin coverage.
--- NOTE | 2019-11-14 21:00 | NUR ---
2100pmedications administered.pt.had requested additional snacks.i have provided the snacks.i
--- NOTE | 2019-11-14 22:00 | NUR ---
pt.assessed.pt.presents quiescent affect;calm,resting viewing programming via telephone.no requests posited@this hour. no c/o pain,nausea.urinal w/in access of the pt.pt.capable to reposition self.call light/telephone w/in reach of the pt.
[2019-11-15] VITALS: BP_SYST 131
--- NOTE | 2019-11-15 | NUR ---
pt.assessed.v/s assessed;values w/in normal limits no c/o pain,nausea.i have attended to the urinal;measured/cleaned palced w/in access of the pt. pt.had requested snacks.i have provided jello/pudding.general status stable.respiratory status stable unlabored.pt.capable to reposition self.call light/telephone w/in reach of the pt.
[2019-11-15] MEDS: MORPHINE 2 MG/ML INJ. SYRINGE IVP PRN ×3 (01:30→04:36)
--- NOTE | 2019-11-15 01:30 | NUR ---
pt.had requested medication;pain.rina has re-established iv access:location;rt.antecubital;#22g.i have administered morphine;2mg ivp. to re-assess the pain medication efficacy per pain mgx protocol.pt.requested crackers/fresh water.i have provided the food items.
--- NOTE | 2019-11-15 02:00 | NUR ---
pt.assessed.pt.presents quiescent affect;calm,somnolent.general status stable.respiratory status stable.unlabored.pt.capable to reposition self.i have inspected the urinal;clean w/in reach of the pt.call light/telephone w/in reach of the pt.
[2019-11-15 04:00] VITALS: BP_SYST 133
--- NOTE | 2019-11-15 04:00 | NUR ---
pt.assessed.pt.requested medication;pain.i have administered morphine:2mg ivp.pt.requested snacks:crackers/milk,.i have provided the food items.i have attended to mike camejo.measureds /.radha shelton w/in acess if thpot.to re-assew p[ainmedicartion ewfficacy per painmgx protocol.call light/telphg aw/.in [facility] of pt/
[2019-11-15 06:44] LABS: BASOPHILS # (AUTO) 0.1 K/uL (0.0-0.2); BASOPHILS % (AUTO) 1.3 % (0.0-2.0); EOSINOPHILS # (AUTO) 0.2 K/uL (0.0-0.4); EOSINOPHILS % (AUTO) 2.6 % (0.0-4.0); HEMATOCRIT 45.6 % (36-54); HEMOGLOBIN 14.9 g/dL (14.0-18.0); LYMPHOCYTES # (AUTO) 1.7 K/uL (1.0-5.5); LYMPHOCYTES % (AUTO) 23.5 % (20.5-51.5); MEAN CORPUSCULAR HEMOGLOBIN 29 pg (27-31); MEAN CORPUSCULAR HGB CONC 33 % (32-36); MEAN CORPUSCULAR VOLUME 88 fL (79.0-98.0); MONOCYTES # (AUTO) 0.5 K/uL (0.0-1.0); MONOCYTES % (AUTO) 7.1 % (1.7-9.3); NEUTROPHILS # (AUTO) 4.7 K/uL (1.8-7.7); NEUTROPHILS % (AUTO) 65.5 % (40.0-70.0); PLATELET COUNT (AUTO) 160 K/uL (130-430); RED BLOOD CELL COUNT(AUTO) 5.16 MIL/uL (4.2-6.2); RED CELL DISTRIBUTION WIDTH 15.1 % (9.0-15.0); WHITE BLOOD COUNT (AUTO) 7.2 K/uL (4.8-10.8)
--- NOTE | 2019-11-15 06:44 | NUR ---
pt.assessed.blood glucose assessed;value;120mg/dl.no c/o pain,nausea.general status stable.respiratory status stable.pt.had requested milk/crackers.i have provided the food items.i have attended to the urinal;measured/cleaned.pt.weighed this am.2/t chf/lasix.call light/telephone w/in reach of the pt.
[2019-11-15 07:11] LABS: ALBUMIN 3.6 g/dL (3.4-4.8); CALCIUM 8.4 mg/dL (8.4-11.0); CREATININE 1.43 mg/dL (0.55-1.30); POTASSIUM 4.1 mmol/L (3.5-5.1); TOTAL BILIRUBIN 0.5 mg/dL (0.0-1.0)
[2019-11-15 08:00] VITALS: BP_SYST 115
[2019-11-15] MEDS: CARVEDILOL 12.5 MG TABLET (COREG) PO SCH (09:00)
[2019-11-15] MEDS: ASPIRIN 81 MG TAB.CHEW PO SCH (09:00)
[2019-11-15] MEDS: FUROSEMIDE 40 MG TABLET PO SCH (09:00)
[2019-11-15] MEDS ORDERED: ATORVASTATIN 10 MG TABLET PO SCH (09:00)
[2019-11-15] MEDS: LISINOPRIL 20 MG TABLET PO SCH (09:00)
== END 2019-11-15 10:20 | disposition left against medical advice (07) | DRG 313 ==
LOC: SED 17:49 → EEVIPCON 19:13 → STU 19:13
PROVIDERS: ADMIT Internal Medicine; ATTEND Internal Medicine
DX: R07.89 Other chest pain (principal); N17.9 Acute kidney failure, unspecified; I50.42 Chronic combined systolic (congestive) and diastolic (congestive) heart failure; I42.0 Dilated cardiomyopathy; Z68.41 Body mass index [BMI] 40.0-44.9, adult; Q60.0 Renal agenesis, unilateral; I13.0 Hypertensive heart and chronic kidney disease with heart failure and stage 1 through stage 4 chronic kidney disease, or unspecified chronic kidney disease; N18.9 Chronic kidney disease, unspecified; E66.01 Morbid (severe) obesity due to excess calories; I44.7 Left bundle-branch block, unspecified; Z53.29 Procedure and treatment not carried out because of patient's decision for other reasons; I48.91 Unspecified atrial fibrillation; E03.9 Hypothyroidism, unspecified; E11.22 Type 2 diabetes mellitus with diabetic chronic kidney disease; F41.9 Anxiety disorder, unspecified; F12.10 Cannabis abuse, uncomplicated; F11.10 Opioid abuse, uncomplicated; I25.5 Ischemic cardiomyopathy; Z86.73 Personal history of transient ischemic attack (TIA), and cerebral infarction without residual deficits; Z59.0 Homelessness; Z95.810 Presence of automatic (implantable) cardiac defibrillator; Z79.82 Long term (current) use of aspirin; Z79.899 Other long term (current) drug therapy; Z88.8 Allergy status to other drugs, medicaments and biological substances; Z03.818 Encounter for observation for suspected exposure to other biological agents ruled out
CPT/HCPCS: 36415; 36600; 71045; 80053; 80061; 80307; 81000-TC; 82803-TC; 82962; 83036; 83880; 84439; 84443-TC; 84484; 85025; 85379; 93005; 96374; 96375; 96376; 99285; G0378; J1200; J1815; J2270; U0003-CS

== ENCOUNTER 2020-02-18 15:30 | Emergency (ER) | payer OTHER, SELFPAY ==
[~2020-02-18] VITALS: Ht 188 cm; Wt 142.9 kg
[2020-02-18 15:30] VITALS: BP_SYST 151
[~2020-02-18 15:30] MED LIST changes: +ASPI-1155 PO; +DOCU-144 PO; +Lipitor PO; -SIMV10TA2 PO
--- NOTE | 2020-02-18 15:30 | NUR ---
BROUGHT BACK TO BED #1 AND TRIAGED. REPORT GIVEN TO MADDISON
--- NOTE | 2020-02-18 15:40 | NUR ---
Patient presented to ER C/O CHEST PAIN. Patient A&Ox4, ambulatory to ER, afebrile, skin pink and warm, pain 06/13, denies N/V/D Patient states he has chest pain radiating to left arm x30 min. PT states he has hx of CHF, pacemaker x4 and HTN.
--- NOTE | 2020-02-18 16:00 | NUR ---
ER Dr. Campos at bedside examining patient.
--- NOTE | 2020-02-18 16:01 | NUR ---
ER at bedside examining patient.
[2020-02-18] MEDS ORDERED: ASPIRIN 81 MG TAB.CHEW ONE (16:02)
[2020-02-18] MEDS ORDERED: NITROGLYCERIN 0.4 MG TAB.SUBL SL ONE ×2 (16:02→18:00)
--- NOTE | 2020-02-18 16:06 | NUR ---
NITRO DOSE GIVEN
[2020-02-18 16:22] LABS: BASOPHILS # (AUTO) 0.2 K/uL (0.0-0.2); BASOPHILS % (AUTO) 1.9 % (0.0-2.0); EOSINOPHILS # (AUTO) 0.3 K/uL (0.0-0.4); EOSINOPHILS % (AUTO) 2.8 % (0.0-4.0); HEMATOCRIT 42.2 % (36-54); LYMPHOCYTES # (AUTO) 1.4 K/uL (1.0-5.5); LYMPHOCYTES % (AUTO) 13.8 % (20.5-51.5); MEAN CORPUSCULAR HEMOGLOBIN 29 pg (27-31); MEAN CORPUSCULAR HGB CONC 33 % (32-36); MEAN CORPUSCULAR VOLUME 89 fL (79.0-98.0); MONOCYTES # (AUTO) 0.6 K/uL (0.0-1.0); MONOCYTES % (AUTO) 5.8 % (1.7-9.3); NEUTROPHILS # (AUTO) 7.7 K/uL (1.8-7.7); NEUTROPHILS % (AUTO) 75.7 % (40.0-70.0); PLATELET COUNT (AUTO) 183 K/uL (130-430); RED BLOOD CELL COUNT(AUTO) 4.77 MIL/uL (4.2-6.2); RED CELL DISTRIBUTION WIDTH 14.4 % (9.0-15.0); WHITE BLOOD COUNT (AUTO) 10.2 K/uL (4.8-10.8)
[2020-02-18] MEDS ORDERED: NITROGLYCERIN 250 ML IV ONE (16:30)
[2020-02-18] MEDS ORDERED: DIPHENHYDRAMINE HCL 25 MG CAPSULE PO ONE (16:30)
[2020-02-18 16:40] LABS: CALCIUM 8.3 mg/dL (8.4-11.0); CREATININE 1.5 mg/dL (0.55-1.30)
[2020-02-18 16:46] LABS: ALBUMIN 3.5 g/dL (3.4-4.8); TOTAL BILIRUBIN 0.3 mg/dL (0.0-1.0)
--- NOTE | 2020-02-18 16:48 | NUR ---
EKG sent to Dr. Dorsey.
--- NOTE | 2020-02-18 16:50 | NUR ---
DR TIPTON SPOKE WITH DR ORELLANA AND DR ORELLANA STATES NO STEMI AT THIS TIME.
[2020-02-18] MEDS ORDERED: PANTOPRAZOLE SODIUM 40 MG/VIAL (PROTONIX) IVP ONE (18:00)
--- NOTE | 2020-02-18 18:10 | NUR ---
ER Dr. TIPTON at bedside discussing pt pain and treatment with patient.
[2020-02-18 18:45] VITALS: BP_SYST 137
--- NOTE | 2020-02-18 18:45 | NUR ---
Patient given written and verbal discharge instructions and verbalizes understanding. ER MD discussed with patient the results and treatment provided. Patient in stable condition. ID arm band removed. NO Rx given. Patient educated on pain management and to follow up with PMD. Pain Scale 1/10. Opportunity for questions provided and answered. Medication side effect fact sheet provided.
[2020-02-18 18:59] LABS: BARBITURATE, URINE NEGATIVE (NEG <=200); BENZODIAZEPINE, URINE NEGATIVE (NEG <=150); CANNABINOID, URINE POSITIVE (NEG <=50); COCAINE, URINE NEGATIVE (NEG <=150); METHAMPHETAMINES SCREEN,URINE NEGATIVE (NEG <=500); OPIATE, URINE NEGATIVE (NEG <=100); PHENCYCLIDINE SCREEN,URINE NEGATIVE (NEG <=25); UR TRICYCLIC ANTIDEPRESSANTS NEGATIVE (NEG <=300); URINE AMPHETAMINE NEGATIVE (NEG <=500); URINE METHADONE NEGATIVE (NEG <=200); URINE OXYCODONE SCREEN NEGATIVE (NEG <=100); URINE PROPOXYPHENE SCREEN NEGATIVE (NEG <=300)
== END 2020-02-18 18:45 | disposition home or self-care (01) ==
LOC: SED 15:30 → EEVIPCON 15:30 → SED 18:45
DX: R07.89 Other chest pain (principal); I11.0 Hypertensive heart disease with heart failure; I48.91 Unspecified atrial fibrillation; I50.9 Heart failure, unspecified; E11.9 Type 2 diabetes mellitus without complications; Z95.0 Presence of cardiac pacemaker; Z86.73 Personal history of transient ischemic attack (TIA), and cerebral infarction without residual deficits; Z79.899 Other long term (current) drug therapy; Z79.82 Long term (current) use of aspirin; Z88.6 Allergy status to analgesic agent
CPT/HCPCS: 36415; 71045; 80053; 80307; 82550; 83880; 84484; 85025; 93005; 96374; 99285; C9113; G0482; Q0163